=== PATIENT | female | born 1940 | race Caucasian/White ===

== ENCOUNTER → 2023-09-12 13:45 | Outpatient (REF) | payer MEDICARE, BC, SELFPAY | LOC: HWRAD 13:45 | PROVIDERS: ATTENDING PHYSICIAN Internal Medicine | DX: M81.0 Age-related osteoporosis without current pathological fracture (principal) | CPT/HCPCS: 77080 ==

== ENCOUNTER 2024-10-22 20:55 | Inpatient (IN) | payer MEDICARE, BC, SELFPAY ==
[2024-10-22 18:13] VITALS: BMI 20.6
[2024-10-22 18:43] LABS: % Basophils 0.4 % (0-2); % Eosinophils 2.3 % (0-6); % Immature Granulocytes 0.4 % (0-0.5); % Lymphocytes 4.4 % (20.5-51.1); % Monocytes 7.8 % (1.7-9.3); % Neutrophils 84.7 % (42.2-75.2); Absolute Eosinophils 0.2 10^3/uL (0-0.7); Absolute Lymphocytes 0.4 10^3/uL (1.2-3.4); Absolute Monocytes 0.7 10^3/uL (0.1-0.6); Absolute Neutrophils 7.1 10^3/uL (1.4-6.5); Hematocrit 37.9 % (37.0-47.0); Hemoglobin 13.1 g/dL (12.0-16.0); Mean Corp Hgb Conc. 34.6 g/dL (33.0-37.0); Mean Corpuscular Volume 86.9 fL (81.0-99.0); Mean Platelet Volume 10.6 fL (7.4-10.4); Nucleated Red Blood Cells % 0 %; Platelet Count 151 10^3/uL (130-400); Red Blood Cell Count 4.36 10^6/uL (4.20-5.40); Red Cell Dist. Width 13.7 % (11.5-14.5); White Blood Cell Count 8.4 10^3/uL (4.8-10.8)
--- NOTE | 2024-10-22 18:45 | ED.GENMED ---
History of Present Illness
General
Chief Complaint: Breathing Problem
Source: patient
Exam Limitations: none
Time Seen by Provider: 10/22/24 18:32
Nursing documentation reviewed up to this point in time: agreed with
History of Present Illness
History of Present Illness:
84-year-old female presents Emergency Department complaining of shortness of breath and fever of 103. She has a history of COPD. Her breathing has worsened recently. Her oxygen saturation was 88% on baseline, and I gradually had increased her
oxygen to 6 L upon arrival in the emergency department. She had diarrhea once this morning.
Past History
Past History
ED Past Medical History: COPD, Psychiatric (Anxiety) and Other (Kidney stones)
ED Past Surgical History: Appendectomy and Tonsilectomy
Social History
Tobacco: Former smoker
Alcohol: None
Drug: None
Personal:
Living: with family
Employment: Retired
Family History
Family History: Other
Review of Systems
Review of Systems
Allergies reviewed?: Yes
All Other Systems: Not applicable
Constitutional: Reports fever
EENT: Reports no symptoms
Respiratory: Reports cough and trouble breathing
Cardiac: Reports no symptoms
ABD/GI: Reports no symptoms
: Reports no symptoms
Musculoskeletal: Reports no symptoms
Skin: Reports no symptoms
Neurological: Reports no symptoms
Endocrine: Reports no symptoms
Hematologic/Lymphatic: Reports no symptoms
Psychiatric: Reports no symptoms
Phy Exam
Physical Exam
Physical Exam:
Physical Exam
General: no apparent distress, not acutely ill
Neck: supple. no meningeal signs. normal posterior pharynx
Heart: s1/s2 regular rate and rhythm, no murmur. equal radial
pulses.
HEENT: Pupils equal round reactive to light, EOMI
Lungs: Moderate respiratory distress, on 6 L nasal cannula, crackles at bilateral bases
Abdomen: normal bowel sounds. not tender. no CVAT
Neuro: alert and oriented. no focal neurological deficits cranial nerves II through XII intact
Skin: no rash
Psychiatric: well kept. interactive and cooperative
Extremities: no edema. no calf tenderness. negative homans. good distal pulses
Scores
Heart Failure Risk
Heart Failure Risk Score: Not Applicable
Course
Orders/Labs/Results
Orders:
Orders
10/22/24 18:17
Electrocardiogram (*1) Urgent
Reason for Study: Other
Other Reason for Exam: Respiratory Distress
CR Chest - 2 Views Urgent
Comment:
Reason For Exam: respiratory distress
10/22/24 18:24
COVID-19 Antigen Routine
Source: Nasal Swab
Complete Blood Count/With Diff Urgent
Comprehensive Metabolic Panel Urgent
Lactate Level [Lactic Acid] Routine
NT-proBNP Urgent
Troponin I Urgent
Influenza A+B Rapid Molecular Routine
NORMAN Source: Nasal Swab
Specimen Description:
10/22/24 19:13
Dexamethasone Sod Phosphate [Decadron] 10 mg IV NOW STA
Ipratropium/Albuterol Sulfate [Duoneb] 3 ml INH R NOW STA
10/22/24 19:15
Acetaminophen [Tylenol] 650 mg PO NOW STA
10/22/24 19:43
Azithromycin 500 mg IVPB NOW Azithromycin 500 mg/250 ml [Zithromax Infusion] 500 mg in 250 ml IV NOW
CefTRIAXone [Rocephin] 2,000 mg IV NOW STA
Abnormal Lab Results
10/22/24
18:24
MPV 10.6 H fL
(7.4-10.4)
Absolute Neuts (auto) 7.1 H 10^3/uL
(1.4-6.5)
Absolute Lymphs (auto) 0.4 L 10^3/uL
(1.2-3.4)
Absolute Monos (auto) 0.7 H 10^3/uL
(0.1-0.6)
Neutrophils % 84.7 H %
(42.2-75.2)
Lymphocytes % 4.4 L %
(20.5-51.1)
Sodium 132 L mmol/L
(135-145)
Creatinine 0.5 L mg/dL
(0.6-1.0)
Glucose 145 H mg/dl
(70-99)
Alkaline Phosphatase 168 H U/L
(38-126)
10/22/24 18:24
10/22/24 18:24
Vital Signs
Initial and Last Documented VS:
Initial Vital Signs
Temp
100.6 F H
10/22/24 18:18
Last Documented Vital Signs
Temp Pulse Resp Pulse Ox
100.6 F H 81 16 97
10/22/24 18:18 10/22/24 18:26 10/22/24 18:26 10/22/24 18:29
MDM/Problems Addressed
Differential Diagnosis Includes:
Pneumonia, COPD
MDM/Problems Addressed:
84-year-old female with pneumonia, right basilar, COPD exacerbation. Hypoxia. Admit to hospitalist. Treat with Rocephin and Zithromax.
Chronic conditions affecting care: COPD
Acute Exacerbation and/or Progression of Chronic Illness: COPD
*Radiology
Radiology exam reviewed: radiology read reviewed (Chest x-ray right basilar pneumonia)
*Pulse Oximetry
Patient hypoxic: yes
*EKG
Interpreted by ED Provider?: Yes
EKG Intrepretation Date: 10/22/24
EKG Intrepretation Time: 18:22
Interpretation: normal
Comparison EKG: no changes
Heart Rate: 84
Rate: normal
Rhythm: sinus
[place]: normal axis
Interval: normal interval
QRS Pattern: normal QRS
Ischemia: no ischemia
*Collections Representative Interpretation
Rate: normal
Interpretation: normal
Heart Rate: 84
Rhythm: sinus
*Critical Care Note
Total Time (30-74mins, 75-104mins- exclusive of procedures): Not Applicable
Patient Management
Social determinants of health affecting care: Living situation and Strong social support
Discussion with other providers: Hospitalist
Escalation/DeEscalation of care consider admission/obs:
Admit indicated
ED Attending Note
-
Portions of this chart may have been created with voice recognition software.� Occasional wrong word or��sound alike� substitutions may have occurred due to the inherent limitations of voice recognition software.
Discharge Plan
Departure
Patient Disposition: Admit
Date of Disposition: 10/22/24
Time of Disposition: 19:16
Admit to: Telemetry
Presentation/result/management discussed w/ accepting MD/DO: Hospitalist
Patient with high blood pressure during this ER visit?: No
Condition: Fair
Covid-19: Negative COVID-19
Discharge Problem:
Acute exacerbation of chronic obstructive pulmonary disease, Pneumonia involving right lung
Prescriptions:
No Action
lorazepam 0.5 MG tablet
0.5 mg PO 1400
lorazepam 1 MG tablet
1 mg PO DAILY
cholecalciferol (vitamin D3) 2,000 UNITS tablet
2,000 units PO DAILY
vitamin E (dl, acetate) 400 UNITS capsule
400 units PO DAILY
cod liver oil 1 CAP capsule
1 cap PO DAILY
ascorbic acid (vitamin C) [Vitamin C] 500 MG tablet
1,000 mg PO BID
cyanocobalamin (vitamin B-12) 1,000 MCG/ML solution
500 mcg SC WEEKLY
oxycodone-acetaminophen [Percocet] 1 EACH tablet
2 tablets PO Q6HPRN PRN (Reason: severe pain) Qty: 12 0RF
tramadol [Ultram] 50 MG tablet
50 mg PO Q6HPRN PRN (Reason: moderate pain) Qty: 12 0RF
lisinopril 5 mg tablet
5 mg PO DAILY Qty: 10 0RF
Interventions
Interventions:
*Risk Screen - Suicide Last Done: 10/22/24 18:20
*General Assessment Last Done: 10/22/24 18:20
*Neglect/Abuse Screening Last Done: 10/22/24 18:20
*ED- Fall Risk Assessment Last Done: 10/22/24 18:20
*ED COVID-19 Vaccine History Last Done: 10/22/24 18:20
ED- Cardiac Assessment Last Done: 10/22/24 18:29
ED- Pulmonary Assessment Last Done: 10/22/24 18:29
Discharge Date and Time
Print Language: EQUATORIAL GUINEAN
[2024-10-22 18:52] LABS: Lactic Acid 1.1 mmol/L (0.7-2.0)
[2024-10-22 18:55] LABS: ALT (SGPT) 30 U/L (0-35); AST (SGOT) 36 U/L (14-36); Albumin 3.9 g/dl (3.5-5.0); Alkaline Phosphatase 168 U/L (38-126); Blood Urea Nitrogen 17 mg/dl (7-17); Calcium 9.7 mg/dl (8.4-10.2); Carbon Dioxide 26 mmol/L (22-30); Chloride 98 mmol/L (98-107); Estimated Creatinine Clearance 57 ml/min; Glucose 145 mg/dl (70-99); Potassium 3.9 mmol/L (3.5-5.1); Sodium 132 mmol/L (135-145); Total Bilirubin 0.8 mg/dl (0.2-1.3); Total Protein 6.7 g/dl (6.3-8.2); eGFR > 60.00
[2024-10-22 18:58] LABS: COVID-19 Antigen Negative (Negative)
[2024-10-22 19:04] LABS: NT-proBNP 1180 pg/ml; Troponin I < 0.012 ng/ml
[2024-10-22 19:46] VITALS: BP 106/92
--- NOTE | 2024-10-22 19:54 | HPS.HSE ---
Addendum entered and electronically signed by Felix Harris DO 10/22/24 21:31:
Patient seen and examined independently. Agree with findings and plan as set forth by VIRGINIA Alaniz.
Patient is an 84y F with PMH significant for COPD, hypertension and chronic pain who presents to ED complaining of increased SOB. Patient states that she woke this AM feeling SOB. She has had chronic issues with L V1 zoster infection over the
past 6 months. Patient admits that the incessant itching causes her to become anxious and SOB at times. She noted a fever at home today to 103 degrees and presented to the ED for further evaluation. Patient denies any cough, chest pain, N/V/D or
urinary complaints.
Ass:
RLL Pneumonia
Acute on Chronic Hypoxemic Respiratory Failure
COPD (1 lpm O2 at baseline)
Chronic Hyponatremia
Benign Hypertension
Anxiety / Depression
V1 Zoster with Chronic Pruritis
Osteoporosis
Plan:
Admit for further evaluation and treatment.
Continue abx for CAP.
Not wheezing at present so will hold on systemic steroids.
Nebs ATC and PRN.
Continue O2 support.
Continue usual home medications.
Follow for clinical improvement.
Original Note:
Family Physician
-
Family Physician: Tiffany Hutchinson
Chief Complaint
-
sob
fever
History of Present Illness
84-year-old female with past medical history for COPD, chronic pain, hypertension, hyperlipidemia presents Emergency Department complaining of shortness of breath and fever of 103. Patient uses 1 L at baseline. Today she she woke up with short of
breath, which is worse with exertion. Later she was noted to have a fever of 103. Patient denied any cough, chest pain. Patient denied any headache, dizziness or syncope. Patient denied any abdominal pain, nausea, vomiting. She had an episode
of diarrhea this morning. Patient denied any urinary frequency, urgency, burning or hematuria.
zithro, ceftriaxone, Decadron, nebx, Tylenol in Er. admitting for further management.
Chest x-ray with pneumonia
Medical History
Past Medical History
Past Medical History: Reports Other
Additional Past Medical History:
COPD
anxiety
kidney stones
Hypertension
Hyperlipidemia
Past Surgical History: Reports Other
Additional Past Surgical History:
appendectomy
tonsillectomy
Social History
Tobacco: Former Smoker
Alcohol: None
Drug: None
Personal:
Living: With Family
Family History
Family History: Not pertinent
Allergies / Home Medications
Allergies reflects when Allergies were last updated in [facility].
Home Medications with original date entered in [facility]
Allergy/Medication List:
Allergies
Allergy/AdvReac Type Severity Reaction Status Date / Time
No Known Allergies Allergy Verified 01/29/22 08:40
Home Medications
lorazepam 0.5 mg tablet 0.5 mg PO BID 05/06/21
abaloparatide (Tymlos) 80 mcg SC NOON 10/22/24
formoterol fumarate 20 mcg/2 mL solution for nebulization 2 ml inhalation R BID 10/22/24
mirtazapine 15 mg tablet 15 mg PO HS 10/22/24
pregabalin 50 mg capsule 50 mg PO BID 10/22/24
propranolol 80 mg capsule,extended release 24 hr 80 mg PO DAILY 10/22/24
revefenacin 175 mcg/3 mL solution for nebulization (Yupelri) 175 mcg inhalation R DAILY 10/22/24
rosuvastatin 5 mg tablet 5 mg PO DAILY 10/22/24
Review of Systems
-
Constitutional: Reports No Symptoms, Fever and Fatigue
EENT: Reports No Symptoms
Respiratory: Reports Trouble Breathing
Cardiac: Reports No Symptoms
Abdomen/GI: Reports No Symptoms
: Reports No Symptoms
Musculoskeletal: Reports No Symptoms
Skin: Reports No Symptoms
Neurological: Reports No Symptoms
Endocrine: Reports No Symptoms
Hematologic/Lymphatic: Reports No Symptoms
Psych: Reports No Symptoms
Physical Exam
Vital Signs
Vital Signs
Temp Pulse Resp BP Pulse Ox
99.4 F 72 16 106/92 98
10/22/24 19:46 10/22/24 19:46 10/22/24 18:26 10/22/24 19:46 10/22/24 19:46
Physical Exam
General: Well Developed, Well Nourished and No Apparent Distress
HEENT: NormoCephalic, Moist mucous membranes and Atraumatic
Respiratory: Decreased Breath Sounds
Cardiac: S1/S2 and Regular Rhythm; No Murmur or Rub
GI: Soft, Non Tender, Non Distended and Normal Bowel Sounds; No Organomegaly
Rectal: Deferred by Provider
Musculoskeletal: No Clubbing, No Cyanosis and No Edema
Skin: No Rash
Neuro: AO x 3 and Nonfocal/grossly intact
Psych: Calm
Laboratory Results
-
10/22/24 18:24
10/22/24 18:24
Laboratory Results
Lactic Acid 1.1 mmol/L (0.7-2.0) 10/22/24 18:24
Total Bilirubin 0.8 mg/dl (0.2-1.3) 10/22/24 18:24
AST 36 U/L (14-36) 10/22/24 18:24
ALT 30 U/L (0-35) 10/22/24 18:24
Alkaline Phosphatase 168 U/L (38-126) H 10/22/24 18:24
Troponin I < 0.012 ng/ml 10/22/24 18:24
Data Reviewed
-
Diagnostic Radiology: Report Reviewed by me
Lab Data: Labs Reviewed by me
Impression/Plan
-
#acute on chronic hypoxic respiratory failure
#right basilar pneumonia
#hxt of COPD
-Patient uses baseline 1 L of oxygen
-covid/flu negative
-chest x ray with mild right basilar probable atelectasis. pneumonia remains in the differential diagnosis.
- Patient received IV ceftriaxone azithromycin in ER
- Continue supplemental oxygen to keep cycle 92
- Wean as tolerated
- IV ceftriaxone and zithro continued
- Tylenol as needed for fever or pain
- Decadron in ER
- Formoterol continued
#chronic hyponatremia
-na 132
-Continue to monitor
# Osteoporosis
-Abaloparatide continued
# Anxiety
- Lorazepam continued
- Mirtazapine for sleep
- Pregabalin continue
# Hypertension
- Propranolol continude
# Hyperlipidemia
- Statin continued
#DVT prophylaxis
- Lovenox subcu
# CODE STATUS
- Full code
[2024-10-22 20:00] VITALS: BP 109/69
[2024-10-22] MEDS: DECADRON 10 MG IV (20:00)
[2024-10-22] MEDS: DUONEB 3 ML INH (20:04)
[2024-10-22] MEDS: ROCEPHIN 2000 MG IV (20:08)
[2024-10-22] MEDS: ZITHROMAX INFUSION 250 IV (20:16)
--- NOTE | 2024-10-22 20:27 | EDRN ---
Pt complains of few days of worsening sob. Pt uses 1 lpm O2 at bedtime. Pt says her made her come to the ED today. notes pt gets sob when she talks a lot. Pt initially on 5 lpm O2 98%, decreased O2 to 2 lpm. Pt denies sob
currently and says the breathing treatment did not make her feel any different. Pt with temp 103 at home. Pt says tylenol does not work for her so she declined to take ordered tylenol because her temp was 99.6 and she has no pain. No cp, abd
pain, n/v, chills, urinary symptoms, dizziness.
--- NOTE | 2024-10-22 20:35 | EDRN ---
Pt complains of increased sob while eating - oxygen increased to 4 lpm
[2024-10-22 22:00] VITALS: BP 101/58
[2024-10-22 23:00] VITALS: BP 107/62
--- NOTE | 2024-10-23 03:10 | PTCARENOTE ---
Pt received as ED hold in bed. AAOx3, drowsy. at beside assisted w/admission questions and plan of care discussed. Full physical assessment completed (refer to worklist). Coarse crackles 1/2 up. Pt denies respiratory complaints at
present. 96% on 4L O2 via NC. Refused HS hygiene. is staying in room. Call gonzalez w/in reach. Safe environment maintained.
[2024-10-23] MEDS: VENTOLIN NEBULES 2.5 MG INH ×4 (08:28→19:23)
[2024-10-23] MEDS: ATIVAN 0.5 MG PO ×2 (08:28→20:26)
[2024-10-23] MEDS: CRESTOR 5 MG PO (09:15)
[2024-10-23] MEDS: LYRICA 50 MG PO ×2 (09:15→20:26)
--- NOTE | 2024-10-23 09:19 | W.PN.HOSP.TC ---
Today's Communication/Plan
-
Continue current treatments
Wean oxygen as able
Assessment / Plan
Assessment / Plan
#acute on chronic hypoxic respiratory failure-patient uses 1 L of oxygen at bedtime and 1 L of oxygen on and off during the day at home normally. Currently requiring 4 L of oxygen. No acute respiratory distress and not actively bronchospastic.
Wean oxygen as able.
# Possible right basilar pneumonia-patient presents with fever and increasing shortness of breath. She has no leukocytosis but has a left shift. She is a focal crackles in the right lung. Clinical concern is for pneumonia. Treated
community-acquired pneumonia. Follow progress. COVID-19/flu negative. Urinary Legionella and Streptococcus pneumonia antigen negative. Afebrile today.
#hxt of COPD-no evidence of flareup. Continue with nebulizers. Hold on steroids.
#chronic hyponatremia
-na 132
-Continue to monitor
# Osteoporosis
-Abaloparatide continued
# Anxiety
- Lorazepam continued
- Mirtazapine for sleep
- Pregabalin continue
# Hypertension
- Propranolol continude
# Hyperlipidemia
- Statin continued
#DVT prophylaxis
- Lovenox subcu
# CODE STATUS
- Full code
Anticipated Discharge: 24 - 48 hours
Subjective/Interval History
-
Date of Service: October 23, 2024
Patient feels bit better. Not short of breath at rest. Cough without much phlegm. No chest pain. No sore throat.
No nausea vomiting.
Objective Data
-
Vital Signs:
Vital Signs
Temp Pulse Resp BP Pulse Ox
97.7 F 67 16 107/62 98
10/23/24 04:41 10/23/24 08:34 10/23/24 08:34 10/22/24 23:00 10/23/24 08:34
Physical Exam
-
General: Comfortable
Respiratory: Crackles (Right base) and Non Labored Respirations; Negative Wheezes or Accessory Resp Muscle Use
Cardiac: Regular Rhythm and S1/S2; Negative Tachycardic
Musculoskeletal: No Edema
Neuro: AO x 3
Data Reviewed
-
Labs: Labs Reviewed by me
[2024-10-23] MEDS: INDERAL LA 80 MG PO (09:26)
--- NOTE | 2024-10-23 10:54 | PTCARENOTE ---
inpt room assigned. No delay report sent to 3W. Pt transporting in bed. Pt and family notified.
[2024-10-23 11:30] VITALS: BP 130/68
[2024-10-23] MEDS: ZENPEP DELAYED RELEASE CAPSULE 3 CAPSULE PO (13:32)
[2024-10-23 16:00] VITALS: BP 153/84
[2024-10-23] MEDS: ZENPEP DELAYED RELEASE CAPSULE PO (18:23)
[2024-10-23] MEDS: ZITHROMAX 500 MG PO (20:26)
[2024-10-23] MEDS: ROCEPHIN 1000 MG IV (20:30)
[2024-10-23] MEDS: STERILE WATER FOR INJECTION 10 ML IV (20:30)
[2024-10-23] MEDS: REMERON 15 MG PO ×2 (20:30)
[2024-10-23 23:44] VITALS: BP 131/67
[2024-10-24 00:43] VITALS: BP 131/67
[2024-10-24 06:35] LABS: Blood Urea Nitrogen 16 mg/dl (7-17); Calcium 9.4 mg/dl (8.4-10.2); Carbon Dioxide 30 mmol/L (22-30); Chloride 103 mmol/L (98-107); Estimated Creatinine Clearance 57 ml/min; Glucose 92 mg/dl (70-99); Sodium 140 mmol/L (135-145); eGFR > 60.00
[2024-10-24 07:00] VITALS: BP 157/83
[2024-10-24] MEDS: VENTOLIN NEBULES 2.5 MG INH ×2 (07:38→11:13)
[2024-10-24] MEDS: CRESTOR 5 MG PO (08:32)
[2024-10-24] MEDS: ZENPEP DELAYED RELEASE CAPSULE 3 CAPSULE PO ×2 (08:32→12:28)
[2024-10-24] MEDS: INDERAL LA 80 MG PO (08:32)
[2024-10-24] MEDS: LYRICA 50 MG PO (08:37)
[2024-10-24] MEDS: ATIVAN 0.5 MG PO (08:43)
--- NOTE | 2024-10-24 10:18 | W.PN.HOSP.TC ---
Today's Communication/Plan
-
DC
Assessment / Plan
Assessment / Plan
#acute on chronic hypoxic respiratory failure-patient uses 1 L of oxygen at bedtime and 1 L of oxygen on and off during the day at home normally. Was requiring 4 L of oxygen on admission - today down to 1l O2. No acute respiratory distress and not
actively bronchospastic.
Check ambulatory pulse ox. Aim to keep >88.
# Possible right basilar pneumonia-patient presents with fever and increasing shortness of breath. She has no leukocytosis but has a left shift. She is a focal crackles in the right lung. Clinical concern is for pneumonia. Treated
community-acquired pneumonia. COVID-19/flu negative. Urinary Legionella and Streptococcus pneumonia antigen negative.
Clinically feels improved. Improving oxygenation. Hemodynamically stable. Afebrile. No GI symptoms. Reached clinical stability from pneumonia standpoint. Will transition to oral cefdinir and zithromax to complete 7-day course. Patient was
advised to get a repeat chest x-ray in 4 weeks to follow on the right basal pneumonia.
#hxt of COPD-no evidence of flareup. Continue with nebulizers. Hold on steroids.
#chronic hyponatremia
-na 140 today
# Osteoporosis
-Abaloparatide continued
# Anxiety
- Lorazepam continued
- Mirtazapine for sleep
- Pregabalin continue
# Hypertension
- Propranolol continude
# Hyperlipidemia
- Statin continued
#DVT prophylaxis
- Lovenox subcu
# CODE STATUS
- Full code
Medically stable for DC today
More than 30 minutes spent in discharge including
Final examination of the patient
Summarizing hospital stay
Instructions for continuing care to all relevant caregivers
Preparation of discharge records, prescriptions, and referral forms
Total time spent (in minutes):
Anticipated Discharge: Today
Subjective/Interval History
-
Date of Service: October 24, 2024
Patient is feeling improved.
Denies shortness of breath. Feels generally well.
No fever or chills.
Not much of cough. Denies chest pain.
Denies nausea vomiting or diarrhea.
Keen to go home.
Patient normally uses 1 L of oxygen at bedtime and also during the day times intermittently.
Objective Data
-
Labs:
Laboratory Results
10/24/24
05:37
Sodium 140 D
Potassium 4.0
Chloride 103
Carbon Dioxide 30
BUN 16
Creatinine 0.5 L
Glucose 92
Calcium 9.4
Vital Signs:
Vital Signs
Temp Pulse Resp BP Pulse Ox
98.1 F 61 16 157/83 95
10/24/24 07:00 10/24/24 07:44 10/24/24 07:44 10/24/24 07:00 10/24/24 07:44
I&O
10/23/24 10/24/24 10/25/24
06:59 06:59 06:59
Intake Total 1200 / 1200
Balance 1200 / 1200
Review of Systems
-
EENT: Denies Sore Throat
Cardiac: Denies Chest Pain
Abdomen/GI: Denies Abdominal Pain
Neuro: Denies Dizzy
Physical Exam
-
General: Comfortable
HEENT: Moist Mucous Membranes
Respiratory: Crackles (few in rt base) and Non Labored Respirations; Negative Wheezes or Accessory Resp Muscle Use
Cardiac: Regular Rhythm and S1/S2; Negative Tachycardic
Musculoskeletal: Negative No Edema
Psych: Calm; Negative Confused
Data Reviewed
-
Labs: Labs Reviewed by me
--- NOTE | 2024-10-24 10:34 | W.DCSUMMARY ---
Discharge Summary
Discharge Data
Date of Admission: 10/22/24
Date of Discharge: 10/24/24
-
Pending Results: No
Hospital Course
Primary diagnosis:
Community-acquired pneumonia with right lower lobe infiltrate
Acute on chronic hypoxic respiratory failure
Secondary diagnosis:
Chronic obstructive pulmonary disease
Chronic hypoxic respiratory insufficiency
Chronic hyponatremia
Benign hypertension
Anxiety/depression
History of V1 zoster infection with chronic pleuritis
Osteoporosis
Hospital course:
Patient with history of COPD on chronic O2 use especially at night and at times during the day presented with increasing shortness of breath. She was febrile at home. She denied much of cough or chest pain. She had normal white count but left
shift was noted. She had crackles in the right base. Chest x-ray raised concern about lower lobe infiltrate. Clinical concern was of community-acquired pneumonia. COVID and flu was negative. Urinary antigen for Legionella and Streptococcus
pneumo are negative. She was treated with empirical ceftriaxone and Zithromax with clinical improvement. Her oxygenation improved to her baseline of 1 L. She was discharged home and to complete 7-day course of cephalosporin and 5 days of
Zithromax. Advised to get a repeat chest x-ray in 4 weeks time.
With regards to COPD there was no evidence of flare. She remained on her home medication.
Discharge Plan
-
Patient Disposition: Home (Routine Discharge)
Discharge Diagnosis/Procedures: Community-acquired pneumonia; hx of COPD
Diet: Regular
Activity: As tolerated
Driving Restrictions: As prior to admission
Bathing Restrictions: None
Others Tests: Chest Xray 2 view in 4 weeks to follow on pneumonia -obtain through your PCP
Referrals:
Tiffany Hutchinson MD [Family Provider] - in less than 1 week
Prescriptions:
New
cefdinir 300 mg capsule
300 mg PO BID Qty: 10 0RF
azithromycin 250 mg Tablet
500 mg PO Q24H Qty: 3 0RF
Zenpep 10,000-32,000 -42,000 unit Capsule,Delayed Release(Dr/Ec)
3 cap PO MEALS Qty: 1 0RF
Rx Instructions:
This is not a new medication . It is Creon which you use at home .
Continued
lorazepam 0.5 MG tablet
0.5 mg PO Q8H PRN (Reason: anxiety)
mirtazapine 15 mg Tablet
15 mg PO HS
propranolol 80 mg Capsule,Extended Release 24hr
80 mg PO DAILY
rosuvastatin 5 mg Tablet
5 mg PO DAILY
pregabalin 50 mg Capsule
50 mg PO BID
formoterol fumarate 20 mcg/2 mL Solution For Nebulization
2 ml INHALATION R BID
Tymlos 80 mcg (3,120 mcg/1.56 mL) Pen Injector
80 mcg SC NOON
Yupelri 175 mcg/3 mL Solution For Nebulization
175 mcg INHALATION R DAILY
Discharge Orders:
Discharge Patient (As Directed); Ordered 10/24/24
Ordered By: Harris Brown
Discharge Date and Time
Print Language: SWEDISH
--- NOTE | 2024-10-24 11:13 | CM ---
CM following re: d/c planning.
CM met with pt and spouse at bedside.
Potential d/c later today.
Pt and spouse reside at [facility] (independent living).
Pt reports she is independent with mobility and ADLs.
She has a scooter for long distances.
Spouse drives.
PCP is Dr. Hutchinson and pharmacy is [facility] in [place].
Pt does not anticipate any d/c needs at this time.
Spouse will provide transport home.
[2024-10-24 12:50] VITALS: BP 175/79
== END 2024-10-24 12:44 | disposition home or self-care (01) | DRG 193 ==
LOC: 3 WEST ACU 20:55
PROVIDERS: ADMITTING PHYSICIAN Hospitalist; ATTENDING PHYSICIAN Internal Medicine; EMERGENCY PHYSICIAN Emergency Medicine; FAMILY PHYSICIAN Internal Medicine
DX: J18.9 Pneumonia, unspecified organism (principal); J96.21 Acute and chronic respiratory failure with hypoxia; J44.0 Chronic obstructive pulmonary disease with (acute) lower respiratory infection; E87.1 Hypo-osmolality and hyponatremia; E78.5 Hyperlipidemia, unspecified; F32.A Depression, unspecified; F41.9 Anxiety disorder, unspecified; I10 Essential (primary) hypertension; M81.0 Age-related osteoporosis without current pathological fracture; Z87.891 Personal history of nicotine dependence; Z99.81 Dependence on supplemental oxygen; Z11.52 Encounter for screening for COVID-19; Z79.899 Other long term (current) drug therapy
CPT/HCPCS: 71046; 80048; 80053; 83605; 83880; 84484; 85025; 87449; 87502; 87811; 87899; 93005; 94640; 96365; 96366; 96375; 99285

== ENCOUNTER 2024-10-25 22:41 | Inpatient (IN) | payer MEDICARE, BC, SELFPAY ==
[2024-10-25] VITALS (53 sets, daily range): BP systolic 65–220; BP diastolic 32–146; PULSE 2–112
[2024-10-25 18:33] LABS: % Basophils 0.2 % (0-2); % Immature Granulocytes 0.4 % (0-0.5); % Lymphocytes 7.7 % (20.5-51.1); % Monocytes 5.1 % (1.7-9.3); % Neutrophils 83.6 % (42.2-75.2); Absolute Eosinophils 0.3 10^3/uL (0-0.7); Absolute Lymphocytes 0.7 10^3/uL (1.2-3.4); Absolute Monocytes 0.5 10^3/uL (0.1-0.6); Absolute Neutrophils 7.9 10^3/uL (1.4-6.5); Hematocrit 41.7 % (37.0-47.0); Hemoglobin 14.2 g/dL (12.0-16.0); Mean Corp Hgb Conc. 34.1 g/dL (33.0-37.0); Mean Corpuscular Hgb 30.3 pg (27.0-31.0); Mean Corpuscular Volume 89.1 fL (81.0-99.0); Mean Platelet Volume 11.2 fL (7.4-10.4); Nucleated Red Blood Cells % 0 %; Platelet Count 232 10^3/uL (130-400); Red Blood Cell Count 4.68 10^6/uL (4.20-5.40); Red Cell Dist. Width 13.8 % (11.5-14.5); White Blood Cell Count 9.5 10^3/uL (4.8-10.8)
[2024-10-25] MEDS: DUONEB 3 ML INH (18:37)
--- NOTE | 2024-10-25 18:42 | ED.GENMED ---
History of Present Illness
<Robert Augustine PA-C - Last Filed: 10/25/24 20:33>
General
Chief Complaint: Breathing Problem
Source: patient
Exam Limitations: none
Time Seen by Provider: 10/25/24 18:16
History of Present Illness
History of Present Illness:
84-year-old female presents for increased work of breathing and elevated blood pressure readings. She was here yesterday and discharged for pneumonia. Currently taking Zithromax and cephalosporin. She has a history of COPD and uses 1 L of oxygen
when she needs it at home. Today she was having increased work of breathing. EMS was called and she was 84% on their arrival on 1 L of oxygen. Patient denies chest pain. She denies any leg swelling or calf pain. No fevers currently.
Past History
<Robert Augustine PA-C - Last Filed: 10/25/24 20:33>
Past History
ED Past Medical History: COPD, Psychiatric (Anxiety) and Other (Kidney stones)
ED Past Surgical History: Appendectomy and Tonsilectomy
Social History
Tobacco: Former smoker
Alcohol: None
Drug: None
Personal:
Living: with family
Employment: Retired
Family History
Family History: Other
Phy Exam
<ANDRAE Khoury Last Filed: 10/25/24 20:33>
Physical Exam
Physical Exam:
General: Well-developed female with increased work of breathing
HEENT normocephalic mucosa dry
Heart: Tachycardic but regular
Lungs: Diminished breath sounds bilaterally
Abdomen is soft nontender
Extremities: No cyanosis
skin: warm, no rash.
Scores
<ANDRAE Khoury Last Filed: 10/25/24 20:33>
Heart Failure Risk
Heart Failure Risk Score: Not Applicable
Course
<Robert Augustine PA-C - Last Filed: 10/25/24 20:33>
Orders/Labs/Results
Orders:
Orders
10/25/24 18:17
Electrocardiogram (*1) Urgent
Reason for Study: Shortness of Breath
10/25/24 18:18
EKG- Treatment ONCE
10/25/24 18:19
CMP [Comprehensive Metabolic Panel] Urgent
Complete Blood Count/With Diff Urgent
10/25/24 18:25
Ipratropium/Albuterol Sulfate [Duoneb] 3 ml INH R NOW STA
10/25/24 18:27
Electrocardiogram (*1) Urgent
Reason for Study: Shortness of Breath
EKG- Treatment ONCE
10/25/24 18:34
NT-proBNP Urgent
Troponin I Urgent
10/25/24 18:41
CR Chest Portable - 1 View Urgent
Comment:
Reason For Exam: sob
Reason Study Needs to be Portable: Patient Unstable
10/25/24 18:48
Nitroglycerin Sublingual [Nitrostat (Sublingual)] 0.4 mg .ROUTE .STK-MED ONE
10/25/24 18:51
Nitroglycerin Sublingual [Nitrostat (Sublingual)] 0.4 mg SL NOW STA
10/25/24 18:53
Venous Blood Gas Urgent
%Oxygen/Room Air: 6l
10/25/24 18:57
Nitroglycerin Sublingual [Nitrostat (Sublingual)] 0.4 mg SL NOW STA
10/25/24 18:58
Nitroglycerin Sublingual [Nitrostat (Sublingual)] 0.4 mg SL NOW STA
10/25/24 19:00
Nitroglycerin 100 mg/250 ml [Nitroglycerin Premix] 100 mg in 250 ml IV PER PROTOCOL
Initial dose in mcg/min, then titrate:: 200
Titrate to keep:: SBP < 160 mmHg
Titrate by mcg/min:: 5 mcg/min, may increase by 10 mcg/min if dose > 20 mcg/min
Frequency of titrations (minutes):: every 3-5 minutes
Maximum dose in mcg/min:: 200
Begin to taper infusion when:: Remained at goal for 2hrs
Taper by mcg/min:: 5 mcg/min
Frequency of taper (minutes) if patient maintains goal:: 30
Taper to off?: Yes
If infusion off & no longer maintaining goal:: Contact Provider
10/25/24 19:03
Bipap [RESP] Urgent
Patient to use own unit?: No
Inspiratory Pressure (cm H2O): 12
Expiratory Pressure (cm H2O): 6
10/25/24 19:26
Morphine Sulfate 2 mg .ROUTE .STK-MED ONE
10/25/24 19:33
Furosemide [Lasix] 100 mg .ROUTE .STK-MED ONE
10/25/24 19:47
Furosemide [Lasix] 60 mg IV NOW STA
10/25/24 19:48
Morphine Sulfate 2 mg IV NOW STA
Abnormal Lab Results
10/25/24 10/25/24
18:19 18:53
MPV 11.2 H fL
(7.4-10.4)
Absolute Neuts (auto) 7.9 H 10^3/uL
(1.4-6.5)
Absolute Lymphs (auto) 0.7 L 10^3/uL
(1.2-3.4)
Neutrophils % 83.6 H %
(42.2-75.2)
Lymphocytes % 7.7 L %
(20.5-51.1)
VBG pH 7.27 L
(7.32-7.43)
VBG pCO2 65 H mmHg
(35-48)
VBG HCO3 29.8 H mmol/L
(22-27)
Creatinine 0.4 L mg/dL
(0.6-1.0)
Glucose 136 H mg/dl
(70-99)
Calcium 10.3 H mg/dl
(8.4-10.2)
Alkaline Phosphatase 142 H U/L
(38-126)
10/25/24 18:19
10/25/24 18:19
Vital Signs
Initial and Last Documented VS:
Initial Vital Signs
Pulse Ox
84
10/25/24 18:09
Last Documented Vital Signs
Temp Pulse Resp BP Pulse Ox
99.8 F 88 23 91/67 96
10/25/24 18:22 10/25/24 21:00 10/25/24 20:46 10/25/24 21:10 10/25/24 21:10
<Anshu Chavarria MD - Last Filed: 10/25/24 21:34>
Orders/Labs/Results
Orders:
Orders
10/25/24 18:17
Electrocardiogram (*1) Urgent
Reason for Study: Shortness of Breath
10/25/24 18:18
EKG- Treatment ONCE
10/25/24 18:19
CMP [Comprehensive Metabolic Panel] Urgent
Complete Blood Count/With Diff Urgent
10/25/24 18:25
Ipratropium/Albuterol Sulfate [Duoneb] 3 ml INH R NOW STA
10/25/24 18:27
Electrocardiogram (*1) Urgent
Reason for Study: Shortness of Breath
EKG- Treatment ONCE
10/25/24 18:34
NT-proBNP Urgent
Troponin I Urgent
10/25/24 18:41
CR Chest Portable - 1 View Urgent
Comment:
Reason For Exam: sob
Reason Study Needs to be Portable: Patient Unstable
10/25/24 18:48
Nitroglycerin Sublingual [Nitrostat (Sublingual)] 0.4 mg .ROUTE .STK-MED ONE
10/25/24 18:51
Nitroglycerin Sublingual [Nitrostat (Sublingual)] 0.4 mg SL NOW STA
10/25/24 18:53
Venous Blood Gas Urgent
%Oxygen/Room Air: 6l
10/25/24 18:57
Nitroglycerin Sublingual [Nitrostat (Sublingual)] 0.4 mg SL NOW STA
10/25/24 18:58
Nitroglycerin Sublingual [Nitrostat (Sublingual)] 0.4 mg SL NOW STA
10/25/24 19:00
Nitroglycerin 100 mg/250 ml [Nitroglycerin Premix] 100 mg in 250 ml IV PER PROTOCOL
Initial dose in mcg/min, then titrate:: 200
Titrate to keep:: SBP < 160 mmHg
Titrate by mcg/min:: 5 mcg/min, may increase by 10 mcg/min if dose > 20 mcg/min
Frequency of titrations (minutes):: every 3-5 minutes
Maximum dose in mcg/min:: 200
Begin to taper infusion when:: Remained at goal for 2hrs
Taper by mcg/min:: 5 mcg/min
Frequency of taper (minutes) if patient maintains goal:: 30
Taper to off?: Yes
If infusion off & no longer maintaining goal:: Contact Provider
10/25/24 19:03
Bipap [RESP] Urgent
Patient to use own unit?: No
Inspiratory Pressure (cm H2O): 12
Expiratory Pressure (cm H2O): 6
10/25/24 19:26
Morphine Sulfate 2 mg .ROUTE .STK-MED ONE
10/25/24 19:33
Furosemide [Lasix] 100 mg .ROUTE .STK-MED ONE
10/25/24 19:47
Furosemide [Lasix] 60 mg IV NOW STA
10/25/24 19:48
Morphine Sulfate 2 mg IV NOW STA
Abnormal Lab Results
10/25/24 10/25/24
18:19 18:53
MPV 11.2 H fL
(7.4-10.4)
Absolute Neuts (auto) 7.9 H 10^3/uL
(1.4-6.5)
Absolute Lymphs (auto) 0.7 L 10^3/uL
(1.2-3.4)
Neutrophils % 83.6 H %
(42.2-75.2)
Lymphocytes % 7.7 L %
(20.5-51.1)
VBG pH 7.27 L
(7.32-7.43)
VBG pCO2 65 H mmHg
(35-48)
VBG HCO3 29.8 H mmol/L
(22-27)
Creatinine 0.4 L mg/dL
(0.6-1.0)
Glucose 136 H mg/dl
(70-99)
Calcium 10.3 H mg/dl
(8.4-10.2)
Alkaline Phosphatase 142 H U/L
(38-126)
10/25/24 18:19
10/25/24 18:19
Vital Signs
Initial and Last Documented VS:
Initial Vital Signs
Pulse Ox
84
10/25/24 18:09
Last Documented Vital Signs
Temp Pulse Resp BP Pulse Ox
99.8 F 88 23 91/67 96
10/25/24 18:22 10/25/24 21:00 10/25/24 20:46 10/25/24 21:10 10/25/24 21:10
<Robert Augustine PA-C - Last Filed: 10/25/24 20:33>
MDM/Problems Addressed
Differential Diagnosis Includes:
Hypoxic with increased respiratory effort. Consider worsening pneumonia versus COPD flare. Does not appear volume overloaded. Respiratory initially put mid flow nasal cannula on which she did seem somewhat comfortable initially however she has
increased work of breathing. We contacted respiratory for consideration of BiPAP. Portable chest x-ray pending. Will try DuoNeb. Discussed with emergency room attending
<Robert Augustine PA-C - Last Filed: 10/25/24 20:33>
*Critical Care Note
Total Time (30-74mins, 75-104mins- exclusive of procedures): Not Applicable
<Anshu Chavarria MD - Last Filed: 10/25/24 21:34>
*Critical Care Note
Total Time (30-74mins, 75-104mins- exclusive of procedures): Not Applicable (47)
comment:
Critical care statement: A total of 47 minutes of critical care time was provided for this patient. This includes management of unstable vital signs, evaluation of the patient at bedside, reviewing the patient's pertinent medical records, ordering
and reviewing studies, arranging urgent treatment with development of a management plan, evaluating patient's response to treatment, frequent reassessment, and discussion with consultants. This time was separate from time utilized to perform the
aforementioned documented procedures.
<Robert Augustine PA-C - Last Filed: 10/25/24 20:33>
Update Note
Update Note:
Reassessed patient. In more distress on mid flow. Respiratory and initiate BiPAP. Patient was also given sublingual nitroglycerin. She appears slightly more comfortable on BiPAP. Nitro drip ordered. Portable chest x-ray reviewed no obvious
significant edema but slight congestion. Consider flash pulmonary edema from hypertensive emergency.
Reevaluated patient multiple times. Nitroglycerin drip initiated and titrated. She received multiple boluses of nitroglycerin with improvement of her respiratory effort and oxygenation while on BiPAP. Nitroglycerin being titrated and currently on
hold as last blood pressure was slightly low. Discussed with emergency room attendings. Will admit to hospital. Suspect flash pulmonary edema
ED Attending Note
<Robert Augustine PA-C - Last Filed: 10/25/24 20:33>
-
Portions of this chart may have been created with voice recognition software.� Occasional wrong word or��sound alike� substitutions may have occurred due to the inherent limitations of voice recognition software.
<Anhsu Chavarria MD - Last Filed: 10/25/24 21:34>
ED Attending Note
Patient seen and examined by attending physician: Yes
I performed the substantive portion of visit, reviewed & personally made and approve the management plan that is documented in note by myself or MALINDA.: Yes
ED Attending Note:
I have seen and evaluated the patient with a [id number] encounter. I have spoken to the [PA] and involved in the medical history, the physical exam, medical decision making.
Evaluation and management service: agree unless noted differently below.
Results interpretation: agree unless noted differently below.
Patient is a 84-year-old woman with history of COPD presenting to the emergency department respiratory distress. Per chart review patient was admitted for pneumonia and was discharged on antibiotics. Per medics patient was hypoxic and placed on
nasal cannula. She was also hypertensive and they gave her nebulizer treatment. On my evaluation patient was in severe respiratory distress, tripoding with minimal air movement worse on the right side. She was hypertensive in the 200s. I did
complete a bedside echo that shows significant pulmonary edema and lung sliding bilaterally. Stat portable chest x-ray was completed which did show pulmonary congestion as well as as possible right-sided lower lobe pneumonia per my interpretation.
Patient was placed on BiPAP and did improved. She also received sublingual nitro x 3 as well as a nitro drip. Shortly after patient became restless again and patient remained hypertensive in the 190s. Additional boluses of nitroglycerin were
given. BiPAP settings were adjusted. I did have a goals of care discussion with patient's who is power of it support consultant. He states that patient would not want a breathing tube. I did discuss the possibility of using ketamine to help with the
BiPAP however there is a chance for intubation. Patient's family member would prefer to hold off on ketamine as well. We did give morphine in addition to the nitroglycerin boluses. Shortly after patient did settle out. She does have much better
aeration bilaterally.
Nursing called as patient became hypotensive to the 100s then 90s. Nitroglycerin drip was decreased and ultimately paused. Will reassess. Will trial patient off BiPAP if she continues to become hypotensive as the positive pressure could be
affecting it.
On reevaluation patient's blood pressure in the 70s. Patient taken off BiPAP and placed on mid flow. Shortly after blood pressure did start to rise and is now in the 90s. Will continue to monitor for any additional medications or interventions
needed.
Discharge Plan
Departure
Patient Disposition: Admit
Date of Disposition: 10/25/24
Time of Disposition: 20:31
Presentation/result/management discussed w/ accepting MD/DO: Hospitalist
Discharge Problem:
Acute respiratory failure
Prescriptions:
No Action
lorazepam 0.5 MG tablet
0.5 mg PO Q8HPRN PRN (Reason: anxiety)
mirtazapine 15 mg Tablet
15 mg PO HS
propranolol 80 mg Capsule,Extended Release 24hr
80 mg PO DAILY
rosuvastatin 5 mg Tablet
5 mg PO DAILY
pregabalin 50 mg Capsule
50 mg PO BID
formoterol fumarate 20 mcg/2 mL Solution For Nebulization
2 ml INHALATION R BID
Tymlos 80 mcg (3,120 mcg/1.56 mL) Pen Injector
80 mcg SC NOON
Yupelri 175 mcg/3 mL Solution For Nebulization
175 mcg INHALATION R DAILY
cefdinir 300 mg capsule
300 mg PO BID Qty: 10 0RF
azithromycin 250 mg Tablet
500 mg PO Q24H Qty: 3 0RF
Referrals:
Tiffany Hutchinson MD [Family Provider] -
Interventions
Interventions:
*Risk Screen - Suicide Last Done: 10/25/24 18:15
*General Assessment Last Done: 10/25/24 18:15
*Neglect/Abuse Screening Last Done: 10/25/24 18:15
*ED- Fall Risk Assessment Last Done: 10/25/24 18:15
*ED COVID-19 Vaccine History Last Done: 10/25/24 18:15
ED- Cardiac Assessment Last Done: 10/25/24 18:15
ED- Pulmonary Assessment Last Done: 10/25/24 18:15
Discharge Date and Time
Print Language: WELSH
[2024-10-25 18:50] LABS: ALT (SGPT) 27 U/L (0-35); AST (SGOT) 26 U/L (14-36); Albumin 4.5 g/dl (3.5-5.0); Alkaline Phosphatase 142 U/L (38-126); Blood Urea Nitrogen 17 mg/dl (7-17); Calcium 10.3 mg/dl (8.4-10.2); Carbon Dioxide 27 mmol/L (22-30); Chloride 98 mmol/L (98-107); Glucose 136 mg/dl (70-99); Potassium 4.2 mmol/L (3.5-5.1); Sodium 135 mmol/L (135-145); Total Bilirubin 0.6 mg/dl (0.2-1.3); Total Protein 7.5 g/dl (6.3-8.2); eGFR > 60.00
[2024-10-25] MEDS: NITROSTAT (SUBLINGUAL) 0.4 MG SL ×3 (18:51→18:59)
[2024-10-25 19:08] LABS: NT-proBNP 2310 pg/ml; Troponin I 0.015 ng/ml
[2024-10-25 19:09] LABS: Venous Blood Gas B.E. 0.9 mmol/L (-4 to +4); Venous Blood Gas HCO3 29.8 mmol/L (22-27); Venous Blood Gas O2 Sat % 58.3 %; Venous Blood Gas pCO2 65 mmHg (35-48); Venous Blood Gas pH 7.27 (7.32-7.43); Venous Blood Gas pO2 43 mmHg (30-50)
[2024-10-25] MEDS: NITROGLYCERIN PREMIX 250 IV (19:12)
[2024-10-25] MEDS: MORPHINE SULFATE 2 MG IV (19:29)
[2024-10-25] MEDS: LASIX 60 MG IV (19:35)
--- NOTE | 2024-10-25 22:55 | HPS.HSE ---
Family Physician
-
Family Physician: Tiffany Hutchinson
Chief Complaint
-
SOB
History of Present Illness
Patient is an 84y F with PMH significant for COPD, HTN, anxiety and recent admission for pneumonia who presents to ED in respiratory distress. Patient was recently admitted from 10/22 - 10/24 for RLL pneumonia and treated with abx, nebs, etc.
Patient clinically improved during her stay and was discharged 10/24 on continued PO abx course. Patient states that she was feeling well at discharge - but had steadily progressive dyspnea over the past 24 hours. This evening she was in severe
respiratory distress and presented to the ED.
EMS recorded SpO2 of 84% on her usual 1 lpm of home O2.
On arrival to the ED, patient was in extremis, restless and in distress.
She was initially placed on BiPAP and treated with IV NTG and IV Lasix.
Patient has since noted significant improvement in her dyspnea.
She is currently resting comfortably and feels much improved from initial arrival.
Her BP was initially 205/133 but is now 70s systolic following NTG SL, NTG gtt, Lasix, etc.
Medical History
Past Medical History
Past Medical History: Reports Other
Additional Past Medical History:
COPD
Anxiety
Kidney stones
Hypertension
Hyperlipidemia
Past Surgical History: Reports Other
Additional Past Surgical History:
appendectomy
tonsillectomy
Social History
Tobacco: Former Smoker
Alcohol: None
Drug: None
Personal:
Living: With Family
Family History
Family History: Not pertinent
Allergies / Home Medications
Allergies reflects when Allergies were last updated in [facility].
Home Medications with original date entered in [facility]
Allergy/Medication List:
Allergies
Allergy/AdvReac Type Severity Reaction Status Date / Time
No Known Allergies Allergy Verified 01/29/22 08:40
Home Medications
lorazepam 0.5 mg tablet 0.5 mg PO Q8HPRN PRN anxiety 05/06/21
abaloparatide (Tymlos) 80 mcg SC NOON 10/22/24
formoterol fumarate 20 mcg/2 mL solution for nebulization 2 ml inhalation R BID 10/22/24
mirtazapine 15 mg tablet 15 mg PO HS 10/22/24
pregabalin 50 mg capsule 50 mg PO BID 10/22/24
propranolol 80 mg capsule,extended release 24 hr 80 mg PO DAILY 10/22/24
revefenacin 175 mcg/3 mL solution for nebulization (Yupelri) 175 mcg inhalation R DAILY 10/22/24
rosuvastatin 5 mg tablet 5 mg PO DAILY 10/22/24
azithromycin 250 mg tablet 500 mg (2 x 250 mg) PO Q24H #3 tabs 10/24/24
cefdinir 300 mg capsule 300 mg PO BID #10 caps 10/24/24
Review of Systems
-
History Source: Patient
A 12 point ROS was completed and negative except as noted: Yes
Constitutional: Reports Fatigue; Denies Fever or Chills
EENT: Denies Sore Throat
Respiratory: Reports Trouble Breathing; Denies Cough
Cardiac: Denies Chest Pain or Palpitations
Abdomen/GI: Denies Abdominal Pain, Nausea, Vomiting or Diarrhea
: Denies Dysuria, Frequency or Flank Pain
Musculoskeletal: Denies Joint Pain or Edema
Neurological: Denies Dizzy or Headache
Psych: Denies Depression or Anxiety
Physical Exam
Vital Signs
Vital Signs
Temp Pulse Resp BP Pulse Ox
99.8 F 67 20 70/49 98
10/25/24 18:22 10/25/24 22:45 10/25/24 22:45 10/25/24 22:45 10/25/24 22:45
Physical Exam
General: Other (84y F currently resting comfortably.)
HEENT: Other (Dry MM. Neck supple.)
Respiratory: Other (Bilateral rales at least 1/2 up. No wheezing / rhonchi.)
Cardiac: S1/S2 and Regular Rhythm; No Murmur
GI: Soft, Non Tender, Non Distended and Normal Bowel Sounds
Musculoskeletal: No Clubbing, No Cyanosis and No Edema
Neuro: AO x 3
Laboratory Results
-
10/25/24 18:19
10/25/24 18:19
Laboratory Results
Total Bilirubin 0.6 mg/dl (0.2-1.3) 10/25/24 18:19
AST 26 U/L (14-36) 10/25/24 18:19
ALT 27 U/L (0-35) 10/25/24 18:19
Alkaline Phosphatase 142 U/L (38-126) H 10/25/24 18:19
Troponin I 0.015 ng/ml 10/25/24 18:34
Impression/Plan
-
A/P: Patient is an 84y F with PMH significant for COPD, anxiety and recent admission for pneumonia who presents to ED in respiratory distress.
Acute Hypoxemic Respiratory Failure
Acute HF - Unknown Type
- Admit to IMU for further evaluation and treatment.
- ? pulmonary edema v interstitial pneumonitis, etc.
- Significant improvement in the ED with NTG, Lasix and O2 favors the former.
- Continue IV Lasix BID for now.
- Follow I/Os, daily weights, etc.
- Check Echo.
- Follow for continued clinical improvement.
- If symptoms recur or do not improve - consider trial of steroids for interstitial pneumonitis.
RLL Pneumonia
- Continue / complete course of cefdinir and azithromycin.
- Follow for any recurrent fever, cough or other symptoms.
Benign Hypertension
Hypotension
- Patient initially quite hypertensive - likely secondary to acute distress.
- Now hypotensive following IV NTG, Lasix, etc.
- Monitor for now for med effects to resolve.
- Midodrine PRN for low BP.
- Small fluid boluses if needed to maintain BP.
- Hold propranolol acutely.
Generalized Anxiety
- Continue current med regimen.
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
- Stable. Continue Lyrica.
DVT Prophylaxis: Subcut heparin
Code Status: DNR
[2024-10-26] VITALS (57 sets, daily range): BP systolic 78–160; BP diastolic 39–95; PULSE 69–70; O2SAT 98
[2024-10-26] MEDS: ZITHROMAX 500 MG PO ×2 (00:56→20:55)
[2024-10-26 01:29] LABS: Troponin I 0.471 ng/ml
[2024-10-26] MEDS: ProAmatine 2.5 MG PO ×4 (01:35→18:09)
--- NOTE | 2024-10-26 01:45 | PTCARENOTE ---
Received verbal report from ASHLEY Pereira. Pt aaox3 and soft spoken. Pt NSR on monitor. Pt's bp 88/46. MAP 60. PRN 2.5 mg midodrine PO ( for MAP <65) administered. 97% on 6L NC. Admission completed. Assessment and vitals as documented. Pt resting in
bed with call gonzalez in reach.
Pt's trop 0.471. MARKUS Dougherty made aware.
[2024-10-26 01:51] LABS: TSH Reflex To Free T4 0.78 uIU/ml (0.47-4.68)
[2024-10-26] MEDS: NSS 250 IV (02:28)
--- NOTE | 2024-10-26 03:59 | W.PN.UPDATE ---
Update Note
Progress Note Update
Patient is hypotensive with sbp 70s to low 80s with map 57. Midodrine, small bolus of IVF given and not effective. BP still low with map in 50s. Will start patient on Levophed to keep map >65
--- NOTE | 2024-10-26 05:53 | PTCARENOTE ---
Bp 78/45 (map 57). Notified MARKUS Dougherty and received Rx for 250 mL fluid bolus and PO midodrine (see MAR). BP now 105/64, MAP 77. NSR on monitor, hr 65.
[2024-10-26 05:54] LABS: Blood Urea Nitrogen 20 mg/dl (7-17); Calcium 8.7 mg/dl (8.4-10.2); Carbon Dioxide 31 mmol/L (22-30); Chloride 102 mmol/L (98-107); Estimated Creatinine Clearance 57 ml/min; Glucose 107 mg/dl (70-99); Potassium 4.2 mmol/L (3.5-5.1); Sodium 136 mmol/L (135-145); eGFR > 60.00
[2024-10-26 06:14] LABS: Troponin I 0.304 ng/ml
[2024-10-26 06:54] LABS: Hematocrit 32.4 % (37.0-47.0); Hemoglobin 10.9 g/dL (12.0-16.0); Mean Corp Hgb Conc. 33.6 g/dL (33.0-37.0); Mean Corpuscular Hgb 29.9 pg (27.0-31.0); Mean Platelet Volume 11.1 fL (7.4-10.4); Platelet Count 169 10^3/uL (130-400); Red Blood Cell Count 3.64 10^6/uL (4.20-5.40); Red Cell Dist. Width 13.7 % (11.5-14.5); White Blood Cell Count 9.3 10^3/uL (4.8-10.8)
--- NOTE | 2024-10-26 07:51 | W.PN.HOSP.TC ---
Today's Communication/Plan
-
see plan
Assessment / Plan
Assessment / Plan
84y F with PMH significant for COPD, anxiety and recent admission for pneumonia who presents to ED in respiratory distress.
Gen: NAD, AAOx3.
Eyes: EOMI, PERRLA, no scleral icterus.
Neck: supple.
CV: RRR, +S1/S2, no m/r/g.
Resp: Decreased breath sounds in the bases
Abd: +BS, soft, NT, ND
Skin: No rashes.
Neuro: CN 2-12 intact, non-focal.
Psych: Normal mood and affect.
CXR: Worsening pneumonitis and/or pulmonary edema. Cannot rule out component of underlying chronic interstitial lung disease.
Acute Hypoxemic Respiratory Failure due to acute CHF (Unknown Type):
-? pulmonary edema v interstitial pneumonitis, etc.
-Significant improvement in the ED with NTG, Lasix and O2 favors the former.
-was on 6L, now weaned to 2L NC O2
-cont IV Lasix
-daily wts, I/Os
-check echo
-c/s cards
-If symptoms recur or do not improve - consider trial of steroids for interstitial pneumonitis.
Essential HTN (h/o) with hypotension
-initially quite hypertensive, likely secondary to acute distress. Pt was then hypotensive following IV NTG, Lasix, etc.
-pt received Midodrine and IVF bolus, then on Levophed which has now been weaned to off
Other problems:
Recent RLL Pneumonia: cont cefdinir/azithromycin
Generalized Anxiety disorder:
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
Patient's updated at bedside
DNR/heparin
Anticipated Discharge: 24 - 48 hours
Subjective/Interval History
-
Date of Service: October 26, 2024
Shortness of breath improving.
Objective Data
-
Labs:
Laboratory Results
10/26/24
05:11
WBC 9.3
Hgb 10.9 L D
Hct 32.4 L
Plt Count 169 D
Sodium 136
Potassium 4.2
Chloride 102
Carbon Dioxide 31 H
BUN 20 H
Creatinine 0.5 L
Glucose 107 H
Calcium 8.7 D
Vital Signs:
Vital Signs
Temp Pulse Resp BP Pulse Ox
98.1 F 62 23 105/64 95
10/26/24 03:18 10/26/24 05:50 10/26/24 05:50 10/26/24 05:50 10/26/24 06:54
I&O
10/25/24 10/26/24 10/27/24
06:59 06:59 06:59
Intake Total 490 / 490
Balance 490 / 490
[2024-10-26] MEDS: OMNICEF 300 MG PO ×2 (08:51→20:54)
[2024-10-26] MEDS: LASIX 20 MG IV ×2 (08:51→16:37)
[2024-10-26] MEDS: CRESTOR 5 MG PO (08:51)
[2024-10-26] MEDS: LYRICA 50 MG PO ×2 (08:51→20:54)
[2024-10-26] MEDS: HEPARIN 5000 UNITS SC ×2 (08:52→20:55)
--- NOTE | 2024-10-26 11:45 | CON.CAR ---
Addendum entered and electronically signed by Telol Goodwin MD 10/26/24 13:45:
I saw and examined the patient.
The JUMPBASTING COLLAR BASTER or PA's note was reviewed and I agree with the note.
Comment: General: Well developed, well nourished in NAD.
Neck: Supple, no JVD, HJR, carotids +2 B/L, no bruits bilaterally.
Heart: Non displaced PMI, RRR, no murmurs, No S3, S4, no rubs.
Lungs: Scattered rhonchi
Extremities: No clubbing, cyanosis or edema bilaterally.
Neuro: Grossly nonfocal, awake, alert and oriented x3.
Abbie has a history of hypertension and herpes zoster. She is admitted with shortness of breath and acute CHF. Of note she had been admitted October 22 2024-12/2024 for pneumonia. She was discharged on October 24 and felt short of breath throughout
the day on October 25 probably return to the ER and found to be hypoxic with pulse ox of 84% and initially placed on BiPAP in the ER. She is markedly hypertensive with a blood pressure of 205/133 was started on nitroglycerin drip and given 40 mg IV
Lasix cardiology is consulted for acute CHF.
Will treat with IV Lasix. Check echocardiogram. follow trops
Original Note:
Consultation
Consultation Request
Date/Time Consultation Requested: 10/26/24 at 0810
Date/Time Consultation Performed: 10/26/24 at 1138
Requesting Provider: Dr. Roldan
Performing Provider: Dr. Goodwin
Reason for Consultation: Acute HF unknown EF
Medical History
-
History of Present Illness:
Patient came to ER last evening with increased SOB and was admitted with acute HF and cardiology is now consulted. Patient was just admitted from 10/22/2024 until 10/24/2024 with CAP and symptoms including fever and productive cough. Patient was not
given a large amount of IVF's on my review of the MAR. Patient was discharged home on cefdinir and azithromycin. Patient was also discharged home on her usual regimen of oxygen 1 L at bedtime. Patient reports feeling well when she was discharged
on 10/24/2024, but then felt progressively SOB throughout the day on 10/25/2024 prompting her return to the ER. Patient was noted to be hypoxic in the ER with an initial pulse ox of 84% with 1 L and patient was initially placed on BiPAP in the ER.
Patient also noted to be markedly HTN at 205/133 and was started on NTG gtt. patient was given Lasix 40 mg IV x 1 patient then developed increasing hypotension and briefly required Levophed starting at about 4:00 this morning. No complaints of CP.
Patient has no previous cardiac testing. Her PCP is a physician that also practices holistic medicine.
PMH:
HTN
Zoster, initial outbreak 04/2024 with ongoing rash, pain and pruritus
Past Medical History
Past Medical History: Other (in HPI)
Past Surgical History: Appendectomy and Tonsilectomy
Social History
Tobacco: Former Smoker
Alcohol: None
Drug: None
Personal:
Living: With Family (lives with in independent living at [facility])
Family History
Family History: CAD
Allergies / Home Medications
Allergy/AdvReac Type Severity Reaction Status Date / Time
No Known Allergies Allergy Verified 01/29/22 08:40
�Medication �Instructions �Recorded �Confirmed �Type
lorazepam 0.5 mg tablet 0.5 mg PO Q8HPRN PRN anxiety 05/06/21 10/25/24 History
abaloparatide (Tymlos) 80 mcg SC NOON 10/22/24 10/25/24 History
formoterol fumarate 20 mcg/2 mL 2 ml inhalation R BID 10/22/24 10/25/24 History
solution for nebulization
mirtazapine 15 mg tablet 15 mg PO HS 10/22/24 10/25/24 History
pregabalin 50 mg capsule 50 mg PO BID 10/22/24 10/25/24 History
propranolol 80 mg capsule,extended 80 mg PO DAILY 10/22/24 10/25/24 History
release 24 hr
revefenacin 175 mcg/3 mL solution 175 mcg inhalation R DAILY 10/22/24 10/25/24 History
for nebulization (Yupelri)
rosuvastatin 5 mg tablet 5 mg PO DAILY 10/22/24 10/25/24 History
azithromycin 250 mg tablet 500 mg (2 x 250 mg) PO Q24H #3 tabs 10/24/24 10/25/24 Rx
cefdinir 300 mg capsule 300 mg PO BID #10 caps 10/24/24 10/25/24 Rx
Review of Systems
-
History Source: Patient and Family ()
All other systems: Negative unless noted
Physical Exam
Vital Signs
Temp Pulse Resp BP Pulse Ox
98.2 F 66 17 105/68 99
10/26/24 08:14 10/26/24 10:00 10/26/24 10:00 10/26/24 09:00 10/26/24 10:00
GEN: NAD. AAOx3. Soft spoken
HEENT: EOMI, MMM, left eyebrow rash c/w Zoster
LUNGS: 5 L NC. B/L rales, no wheeze
CV: SR on tele. Reg, S1/S2, no murmur
ABD: soft, BS+, NT, ND
EXT: No clubbing, cyanosis, lesions or edema B/L
NEURO: Gross non-focal
SKIN: Zoster rash above left eye. Warm, dry and pink.
Lab Results
10/26/24 05:11
10/26/24 05:11
Troponin I 0.304 ng/ml H* D 10/26/24 05:11
Otz-M-Mpteldnlokw Pept 2310 pg/ml 10/25/24 18:34
Impression / Plan
-
PCP: Dr. Tiffany Hutchinson
Card: None, but asking for Dr. Hicks as an outpatient as and son follow with Dr. Hicks
Impression:
Admitted with acute hypoxic respiratory failure, SOB and CHF 10/25/24
Recent admission for PNA 10/22/24 until 10/24/24
Acute hypoxic respiratory failure
Acute HF unknown EF
HTN emergency
Hypotension
Zoster, initial outbreak 04/2024 with ongoing rash, pain and pruritus
Echo 10/26/24: Preliminary report, EF 70 to 75%, mild peak/mean 20/11 mmHg and mild aortic regurgitation, mild TR
Plan:
-Patient came to ER last evening with increased SOB and was admitted with acute HF and cardiology is now consulted. Patient was just admitted from 10/22/2024 until 10/24/2024 with CAP and symptoms including fever and productive cough. Patient was not
given a large amount of IVF's on my review of the MAR. Patient was discharged home on cefdinir and azithromycin. Patient was also discharged home on her usual regimen of oxygen 1 L at bedtime. Patient reports feeling well when she was discharged
on 10/24/2024, but then felt progressively SOB throughout the day on 10/25/2024 prompting her return to the ER. Patient was noted to be hypoxic in the ER with an initial pulse ox of 84% with 1 L and patient was initially placed on BiPAP in the ER.
Patient also noted to be markedly HTN at 205/133 and was started on NTG gtt. patient was given Lasix 40 mg IV x 1 patient then developed increasing hypotension and briefly required Levophed starting at about 4:00 this morning. No complaints of CP.
Patient has no previous cardiac testing. Her PCP is a physician that also practices holistic medicine.
-ECG reviewed by me is SR with PACs, QTc 482 ms, no acute ischemic changes. Telemetry reviewed by me is also SR
-Talked with patient and also her at the bedside. proBNP is elevated at 2310 compared to 1180 last admission which was only last week. CXR is also concerning for CHF. Patient reports some symptomatic improvement with diuresis thus far.
-Continue Lasix 20 mg IV BID. Patient was not taking diuretic prior to admission
-Preliminary echo report noted above, final report pending. EF appears to be preserved with only mild .
-I personally reviewed the MAR from her last admission and the patient was not given IVF's.
-Patient is chronically on propranolol 80 mg daily for HTN management.
-Patient was noted to be in hypertensive emergency on admission with initial BP of 205/133 and evidence of acute HF and elevated troponin.
-Nitro gtt started and patient later developed hypotension and Levophed started at 04 100 this morning, but now stopped and BP has settled out at 105/68. Patient denies VALENCIA or feeling lightheaded
-Acute HF may have been precipitated by HTN emergency.
-Will follow BPs once settled following up and down with medication changes throughout the morning.
-Initial troponin 0.015 and then peaked at 0.471 and now trending down. No CP. No ischemic changes on ECG. No WMA on echo. Will manage as a nonischemic myocardial injury troponin elevation.
-Patient's son and see Dr. Hicks and so she would like her outpatient follow up to be with Dr. Hicks.
--- NOTE | 2024-10-26 15:03 | CM ---
Patient who resides at [facility] with recent admission to for PNA now here with Dx Acute Hypoxemic Respiratory Failure due to acute CHF. O2 2L. Receiving IV Lasix, PO Abx, midodrine prn. Per nurse assessment; forgetful.
PT/OT Evals pending.
Spoke with patient's Winston;
the patient resides with her in an apartment at [facility].
She was independent for ADLs and ambulation after her discharge from on 10/24/24.
drives.
DME - home O2 1L HS - she has 3 Inogen tanks and has no home O2 concentrator, also has a scooter
No prior VN or SNF.
PCP - Tiffany Hutchinson
Pharmacy - [facility], [place]
Plan follow up after seen by PT/OT.
[2024-10-26] MEDS: ATIVAN 0.5 MG PO (16:59)
[2024-10-26] MEDS: REMERON 15 MG PO (20:55)
--- NOTE | 2024-10-26 21:53 | PTCARENOTE ---
Assumed care of pt from mireille RN. Pt aaox3, soft spoken. NSR on monitor 96% on 2L NC. Hygiene completed and CHAMP medications administered (see MAR). Pt resting in bed with at bed side and call gonzalez in reach.
[2024-10-27] VITALS (10 sets, daily range): BP systolic 98–149; BP diastolic 53–89; BMI 21.8; BMI 19.4
[2024-10-27 04:19] LABS: Hematocrit 34.7 % (37.0-47.0); Hemoglobin 11.7 g/dL (12.0-16.0); Mean Corp Hgb Conc. 33.7 g/dL (33.0-37.0); Mean Corpuscular Hgb 30.2 pg (27.0-31.0); Mean Corpuscular Volume 89.4 fL (81.0-99.0); Mean Platelet Volume 10.7 fL (7.4-10.4); Platelet Count 171 10^3/uL (130-400); Red Blood Cell Count 3.88 10^6/uL (4.20-5.40); Red Cell Dist. Width 13.8 % (11.5-14.5); White Blood Cell Count 6.7 10^3/uL (4.8-10.8)
[2024-10-27 04:51] LABS: Blood Urea Nitrogen 20 mg/dl (7-17); Calcium 9.2 mg/dl (8.4-10.2); Carbon Dioxide 30 mmol/L (22-30); Chloride 102 mmol/L (98-107); Estimated Creatinine Clearance 57 ml/min; Glucose 86 mg/dl (70-99); Magnesium 1.6 mg/dl (1.6-2.3); Potassium 3.9 mmol/L (3.5-5.1); Sodium 139 mmol/L (135-145); eGFR > 60.00
--- NOTE | 2024-10-27 08:14 | W.PN.HOSP.TC ---
Addendum entered and electronically signed by Kiel Roldan MD 10/27/24 12:01:
Drug Induced Shock
Original Note:
Today's Communication/Plan
-
see plan
Assessment / Plan
Assessment / Plan
84y F with PMH significant for COPD, anxiety and recent admission for pneumonia who presents to ED in respiratory distress.
Gen: NAD, Awake and alert
Eyes: EOMI, PERRLA, no scleral icterus.
Neck: supple.
CV: RRR, +S1/S2, no m/r/g.
Resp: mild rales in the bases
Abd: +BS, soft, NT, ND
Skin: No rashes.
Neuro: CN 2-12 intact, non-focal.
Psych: slightly anxious
CXR: Worsening pneumonitis and/or pulmonary edema. Cannot rule out component of underlying chronic interstitial lung disease.
Echo: Normal left ventricular size, wall thickness and systolic function. No regional
wall motion abnormalities are seen. LV ejection fraction is 70-75% by Jimenez's
method of discs.
Stage I diastolic dysfunction suggestive of abnormal relaxation.
Mild aortic stenosis. Peak/mean gradients across the aortic valve are 20/11
mmHg. Mild aortic regurgitation.
Mild tricuspid regurgitation.
No prior study available for comparison.
Acute Hypoxemic Respiratory Failure due to acute HFpEF:
-Pt with underlying chronic hypoxemic respiratory failure on 1L NC O2 at baseline
-Significant improvement in the ED with NTG, Lasix and O2 favors the former.
-was on 6L, now weaned to 2L NC O2
-cont IV Lasix
-daily wts, I/Os
-echo above
-cards following
Essential HTN (h/o) with hypotension:
-initially quite hypertensive, likely secondary to acute distress. Pt was then hypotensive following IV NTG, Lasix, etc.
-pt received Midodrine and IVF bolus, then on Levophed which has now been weaned to off
Other problems:
Recent RLL Pneumonia: cont cefdinir/azithromycin
Generalized Anxiety disorder: cont Remeron, Ativan PRN
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
4 family members updated at length at bedside, case discussed with cardiology.
DNR/heparin
Total time spent on today's encounter was 50 minutes which included time spent in counseling the patient/family regarding diagnosis and treatment plan as listed above, goals of care, and symptom management. Case was discussed with nursing staff,
specialists, and care coordinators/case management. All labs and imaging personally reviewed by me. Remainder the time spent in detailed review of previous records, lab data, imaging, and other medical provider documentation.
Anticipated Discharge: 24 - 48 hours
Subjective/Interval History
-
Date of Service: October 27, 2024
SOB has improved.
Objective Data
-
Labs:
Laboratory Results
10/27/24
04:05
WBC 6.7
Hgb 11.7 L
Hct 34.7 L
Plt Count 171
Sodium 139
Potassium 3.9
Chloride 102
Carbon Dioxide 30
BUN 20 H
Creatinine 0.5 L
Glucose 86
Calcium 9.2
Vital Signs:
Vital Signs
Temp Pulse Resp BP Pulse Ox
98.5 F 98 22 126/59 93
10/27/24 07:47 10/27/24 07:47 10/27/24 07:47 10/27/24 06:00 10/27/24 07:47
I&O
10/26/24 10/27/24 10/28/24
06:59 06:59 06:59
Intake Total 490 / 490
Output Total 1425 / 1425
Balance 490 / 490 -1425 / -1425
[2024-10-27] MEDS: CRESTOR 5 MG PO (08:48)
[2024-10-27] MEDS: LASIX 20 MG IV ×2 (08:48→16:14)
[2024-10-27] MEDS: OMNICEF 300 MG PO ×2 (08:48→21:28)
[2024-10-27] MEDS: LYRICA 50 MG PO ×2 (08:48→21:28)
[2024-10-27] MEDS: HEPARIN 5000 UNITS SC ×2 (08:48→21:29)
[2024-10-27] MEDS: ProAmatine 2.5 MG PO (08:51)
--- NOTE | 2024-10-27 09:01 | PTCARENOTE ---
Pt AAOx3 OOB to chair. at bedside. No CO at this time.
--- NOTE | 2024-10-27 09:20 | PN.CDI ---
CDI
- -
CDI:
Physician Documentation Request
Admit Date: 10/25/24 22:41
Dear Doctor Jamar,
Please review the following and provide your response in the progress notes.
Current documentation includes a diagnosis of hypotension.
Clinical Indicators:
Pt admitted with Acute CHF /Acute Hypoxic Respiratory Failure
Update note 10/26, ' Patient is hypotensive with sbp 70s to low 80s with map 57. Midodrine, small bolus of IVF given and not effective. BP still low with map in 50s. Will start patient on Levophed to keep map >65...'
Progress note 10/26,' Pt was then hypotensive following IV NTG, Lasix, etc.-pt received Midodrine and IVF bolus, then on Levophed which has now been weaned to off...'
Please clarify which of the following is the most likely etiology of the above symptoms and treatment rendered/IV Levophed:
Drug Induced Shock
Cardiogenic shock
Hypotension only
Other ( please specify)
Use of terms such as suspected, likely, concern for, or probable (associated with a specific diagnosis that is being evaluated, monitored, or treated as if it exists) are acceptable and can be coded in the inpatient setting, when documented at the
time of discharge.
Thank you,
Gala Tubbs RN
CDI Specialist
[facility]
Please use your independent medical judgment in providing your response.
--- NOTE | 2024-10-27 11:40 | W.PN.CARDCBS ---
Addendum entered and electronically signed by Minor Bunrham DO 10/27/24 15:58:
I saw and examined the patient.
The Expediter's note was reviewed and I agree with the note.
Comment:
Continue Lasix IV diuresis. Patient is improving symptomatically with diuresis.
EF is preserved by echo. Mild and AR reviewed.
Heart failure may have been related to her hypertensive urgency.
Blood pressure has normalized.
Discussed with at bedside.
Original Note:
Today's Communication / Plan
-
Cont Lasix 20 mg IV BID
Impression / Plan
-
PCP: Dr. Tiffany Hutchinson
Card: None, but asking for Dr. Hicks as an outpatient as and son follow with Dr. Hicks
Impression:
Admitted with acute hypoxic respiratory failure, SOB and CHF 10/25/24
Recent admission for PNA 10/22/24 until 10/24/24
Acute hypoxic respiratory failure
Acute HF unknown EF
HTN emergency
Hypotension
Zoster, initial outbreak 04/2024 with ongoing rash, pain and pruritus
Echo 10/26/24: EF 70 to 75%, stage I diastolic dysfunction, mild peak/mean 20/11 mmHg and mild aortic regurgitation, mild TR
Plan:
-Weight is up 10 lbs overnight according to recorded weight. TT to RN to please recheck weight.
-Patient is symptomatically improved with Lasix 20 mg IV BID since admission. Cre stable at 0.5. Patient was not taking diuretic prior to admission
-EF preserved by echo. is mild
-Tele reviewed and remains in SR, but HRs faster while outpatient dose of propranolol 80 mg daily is on hold.
-Patient was noted to be in hypertensive emergency on admission with initial BP of 205/133 and evidence of acute HF and elevated troponin.
-Nitro gtt started and patient later developed hypotension and briefly required Levophed which was also stopped on 10/26/24.
-Acute HF may have been precipitated by HTN emergency.
-BPs have been largely stable and acceptable in the last 24 hours without BP meds.
-Hgb 14.2 on admission, then 10.9 and now improved to 11.7 on 10/27/24
-Initial troponin 0.015 and then peaked at 0.471 and now trending down. No CP. No ischemic changes on ECG. No WMA on echo. Will manage as a nonischemic myocardial injury troponin elevation.
-Patient would like her outpatient follow up to be with Dr. Hicks.
HPI: Patient came to ER last evening with increased SOB and was admitted with acute HF and cardiology is now consulted. Patient was just admitted from 10/22/2024 until 10/24/2024 with CAP and symptoms including fever and productive cough. Patient was
not given a large amount of IVF's on my review of the MAR. Patient was discharged home on cefdinir and azithromycin. Patient was also discharged home on her usual regimen of oxygen 1 L at bedtime. Patient reports feeling well when she was
discharged on 10/24/2024, but then felt progressively SOB throughout the day on 10/25/2024 prompting her return to the ER. Patient was noted to be hypoxic in the ER with an initial pulse ox of 84% with 1 L and patient was initially placed on BiPAP in
the ER. Patient also noted to be markedly HTN at 205/133 and was started on NTG gtt. patient was given Lasix 40 mg IV x 1 patient then developed increasing hypotension and briefly required Levophed starting at about 4:00 this morning. No
complaints of CP. Patient has no previous cardiac testing. Her PCP is a physician that also practices holistic medicine.
Progress Note - Dairy Manager
Subjective
Date of Service: October 27, 2024
She feels well, still on oxygen, but breathing is better
Objective
Labs:
10/27/24 04:05
10/27/24 04:05
Labs
Hgb 11.7 g/dL (12.0-16.0) L 10/27/24 04:05
Hct 34.7 % (37.0-47.0) L 10/27/24 04:05
Plt Count 171 10^3/uL (130-400) 10/27/24 04:05
Sodium 139 mmol/L (135-145) 10/27/24 04:05
Potassium 3.9 mmol/L (3.5-5.1) 10/27/24 04:05
BUN 20 mg/dl (7-17) H 10/27/24 04:05
Creatinine 0.5 mg/dL (0.6-1.0) L 10/27/24 04:05
Glucose 86 mg/dl (70-99) 10/27/24 04:05
Troponins
10/25/24 10/26/24 10/26/24
18:34 00:33 05:11
Troponin I 0.015 0.471 H* D 0.304 H* D
Vital Signs and I&O:
Vital Signs
Temp Pulse Resp BP Pulse Ox
98.5 F 94 28 117/69 95
10/27/24 07:47 10/27/24 08:51 10/27/24 08:00 10/27/24 08:51 10/27/24 09:13
Vital Signs
Temp Pulse Resp BP Pulse Ox
98.5 F 94 28 117/69 95
10/27/24 07:47 10/27/24 08:51 10/27/24 08:00 10/27/24 08:51 10/27/24 09:13
Intake & Output
10/25/24 10/26/24 10/27/24 10/28/24
06:59 06:59 06:59 06:59
Intake Total 490 / 490
Output Total 1425 / 1425
Balance 490 / 490 -1425 / -1425
Physical Exam
Physical Exam
GEN: NAD
HEENT: MMM
LUNGS: 3 L NC.
CV: SR on tele.
--- NOTE | 2024-10-27 16:10 | CM ---
Patient who resides at [facility] with recent admission to for PNA now here with Dx Acute Hypoxemic Respiratory Failure due to acute CHF. O2 2L. Receiving IV Lasix, PO Abx. PT Eval; recommends HH. OT recommends skilled
rehab.
Met with patient and Winston; discussed patient's current functional mobility as per PT/OT. Offered VN for SN/PT/OT and thinks that would be a good idea- patient reluctantly agreed. They both chose [facility].
Spoke with [facility] (fax [phone]); referral accepted
Plan home with [facility].
[2024-10-27] MEDS: ATIVAN 0.5 MG PO (18:30)
[2024-10-27] MEDS: ZITHROMAX 500 MG PO (21:28)
[2024-10-27] MEDS: REMERON 15 MG PO (21:29)
[2024-10-28] VITALS (49 sets, daily range): BP systolic 67–132; BP diastolic 43–101; PULSE 68; O2SAT 96; BMI 19.4
--- NOTE | 2024-10-28 02:58 | PTCARENOTE ---
Pt AAOx3, drowsy. Pt states she is 'tired'. Pt is NSR on the monitor. Pt weaned to baseline 1L NC O2. SpO2 98%. Pt appears to be resting comfortably in bed. staying over and is at the bedside. Pt has call gonzalez within reach, and able to make
needs known.
--- NOTE | 2024-10-28 08:08 | W.PN.HOSP.TC ---
Today's Communication/Plan
-
see plan
Assessment / Plan
Assessment / Plan
84y F with PMH significant for COPD, anxiety and recent admission for pneumonia who presents to ED in respiratory distress.
Gen: NAD, Awake and alert
Eyes: EOMI, PERRLA, no scleral icterus.
Neck: supple.
CV: tachy, irreg/irreg, +S1/S2, no m/r/g.
Resp: remains with mild rales in the bases
Abd: +BS, soft, NT, ND
Skin: No rashes.
Neuro: CN 2-12 intact, non-focal.
Psych: very slightly anxious
CXR: Worsening pneumonitis and/or pulmonary edema. Cannot rule out component of underlying chronic interstitial lung disease.
Echo: Normal left ventricular size, wall thickness and systolic function. No regional
wall motion abnormalities are seen. LV ejection fraction is 70-75% by Jimenez's
method of discs.
Stage I diastolic dysfunction suggestive of abnormal relaxation.
Mild aortic stenosis. Peak/mean gradients across the aortic valve are 20/11
mmHg. Mild aortic regurgitation.
Mild tricuspid regurgitation.
No prior study available for comparison.
New Afib with RVR:
-called to bedside due to A-fib with RVR to the 200s
- Lopressor 5 mg IV given, heart rate decreased to the 140s
Acute Hypoxemic Respiratory Failure due to acute HFpEF:
-Pt with underlying chronic hypoxemic respiratory failure on 1L NC O2 at baseline
-Significant improvement in the ED with NTG, Lasix and O2 favors the former.
-was on 6L, now weaned to 1L NC O2
-cont IV Lasix
-daily wts, I/Os
-echo above
-cards following
Essential HTN (h/o) with hypotension:
-initially quite hypertensive, likely secondary to acute distress. Pt was then hypotensive following IV NTG, Lasix, etc.
-pt received Midodrine and IVF bolus, then on Levophed which has now been weaned to off
-start Eliquis 2.5mg PO BID (age/wt)
-start cardizem gtt
-discussed with cardiology
Other problems:
Recent RLL Pneumonia: cont cefdinir/azithromycin
Generalized Anxiety disorder: cont Remeron, Ativan PRN
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
4 family members updated at length at bedside, case discussed with cardiology.
DNR/heparin
Total time spent on today's encounter was 51 minutes which included time spent in counseling the patient/family regarding diagnosis and treatment plan as listed above, goals of care, and symptom management. Case was discussed with nursing staff,
specialists, and care coordinators/case management. All labs and imaging personally reviewed by me. Remainder the time spent in detailed review of previous records, lab data, imaging, and other medical provider documentation.
Anticipated Discharge: > 48 hours
Subjective/Interval History
-
Date of Service: October 28, 2024
Denies SOB.
Objective Data
-
Vital Signs:
Vital Signs
Temp Pulse Resp BP Pulse Ox
98.8 F 74 24 124/70 98
10/28/24 06:03 10/28/24 06:00 10/28/24 06:00 10/28/24 06:00 10/28/24 06:00
I&O
10/27/24 10/28/24 10/29/24
06:59 06:59 06:59
Intake Total 480 / 480
Output Total 1425 / 1425
Balance -1425 / -1425 480 / 480
[2024-10-28] MEDS: LOPRESSOR 5 MG IV (08:45)
[2024-10-28] MEDS: LASIX 20 MG IV ×2 (08:50→16:51)
[2024-10-28] MEDS: OMNICEF 300 MG PO ×2 (08:50→19:25)
[2024-10-28] MEDS: ATIVAN 0.5 MG PO ×2 (08:50→17:55)
[2024-10-28] MEDS: LYRICA 50 MG PO ×2 (08:50→19:25)
[2024-10-28] MEDS: CRESTOR 5 MG PO (08:51)
[2024-10-28] MEDS: HEPARIN SC ×2 (08:51→09:13)
--- NOTE | 2024-10-28 08:58 | W.PN.CARDCBS ---
Addendum entered and electronically signed by Rickey Yo MD 10/28/24 15:28:
I saw and examined the patient.
The Hospital Admissions Clerk's note was reviewed and I agree with the note.
Comment:
GEN: No distress, awake, Ox3
HEENT: supple, anicteric, mmm
LUNGS: scatt rhonchi
CV: Reg, S1/S2, 1/6 syst LSB, no gallop
ABD: soft, BS+, NT/ND
EXT: No edema
NEURO: Gross non-focal
SKIN: No rash
Plan:
Had an episode of new onset atrial fibrillation with rapid ventricular rates. She was placed on IV Cardizem and converted back into sinus rhythm with some hypotension.
Will add low-dose Toprol to try to maintain sinus rhythm. Blood pressure improved with midodrine.
[id number] score is 4. Will start Eliquis 2.5 mg p.o. twice daily
Continue treatments for pneumonia.
Will continue IV Lasix 20 mg IV twice daily for another 24 hours. Weight is significantly improved. Creatinine is normal.
Original Note:
Today's Communication / Plan
-
New Afib with RVR that spontaneously converted with Cardizem gtt
Hypotensive after Cardizem gtt stopped and got better with extra midodrine for a total of 7.5 mg
New to Eliquis
Diuresing
Impression / Plan
-
PCP: Dr. Tiffany Hutchinson
Card: None, but asking for Dr. Hicks as an outpatient as and son follow with Dr. Hicks
Impression:
Admitted with acute hypoxic respiratory failure, SOB and CHF 10/25/24
Recent admission for PNA 10/22/24 until 10/24/24
Acute hypoxic respiratory failure
Acute HF unknown EF
HTN emergency
Hypotension
Zoster, initial outbreak 04/2024 with ongoing rash, pain and pruritus
Newly diagnosed Afib with RVR and spontaneous conversion to SR 10/28/24
Echo 10/26/24: EF 70 to 75%, stage I diastolic dysfunction, mild peak/mean 20/11 mmHg and mild aortic regurgitation, mild TR
Plan:
-Patient with new onset Afib with RVR on 10/28/24. Patient symptomatic with weakness. Patient given Lopressor 5 mg IV by hospitalist attending and then started on Cardizem gtt. Patient spontaneously converted to SR and Cardizem gtt stopped 10/28/24.
-Outpatient dose of propranolol 80 mg daily on hold since admission. ToproL XL 12.5 mg daily started 10/28/24.
-New to Eliquis 2.5 mg BID (age 84, Cre 0.5, wt 48 kg). [id number] is 5
-Patient then progressively hypotensive despite stopping Cardizem gtt, BP 65/43. Patient given midodrine 2.5 mg PO x1 as a PRN and then ordered an additional midodrine 5 mg PO x1 by me 10/28/24. BP improved to 100/64 in the last 2 hours.
-BP has been up and down this admission. Patient was noted to be in hypertensive emergency on admission with initial BP of 205/133 and evidence of acute HF and elevated troponin. Nitro gtt started and patient later developed hypotension and briefly
required Levophed which was also stopped on 10/26/24.
-Overall weight is down at least 4 lbs with Lasix 20 mg IV BID. Patient was not taking diuretic prior to admission
-EF preserved by echo. is mild
-Acute HF may have been precipitated by HTN emergency.
-Initial troponin 0.015 and then peaked at 0.471 and now trending down. No CP. No ischemic changes on ECG. No WMA on echo. Will manage as a nonischemic myocardial injury troponin elevation.
-Patient would like her outpatient follow up to be with Dr. Hicks. Updated patient's and son for about 10 minutes on 10/28/24
HPI: Patient came to ER last evening with increased SOB and was admitted with acute HF and cardiology is now consulted. Patient was just admitted from 10/22/2024 until 10/24/2024 with CAP and symptoms including fever and productive cough. Patient was
not given a large amount of IVF's on my review of the MAR. Patient was discharged home on cefdinir and azithromycin. Patient was also discharged home on her usual regimen of oxygen 1 L at bedtime. Patient reports feeling well when she was
discharged on 10/24/2024, but then felt progressively SOB throughout the day on 10/25/2024 prompting her return to the ER. Patient was noted to be hypoxic in the ER with an initial pulse ox of 84% with 1 L and patient was initially placed on BiPAP in
the ER. Patient also noted to be markedly HTN at 205/133 and was started on NTG gtt. patient was given Lasix 40 mg IV x 1 patient then developed increasing hypotension and briefly required Levophed starting at about 4:00 this morning. No
complaints of CP. Patient has no previous cardiac testing. Her PCP is a physician that also practices holistic medicine.
Progress Note - Housemaid
Subjective
Date of Service: October 28, 2024
She feels tired and weak
Objective
Labs:
Labs
Hgb 11.7 g/dL (12.0-16.0) L 10/27/24 04:05
Hct 34.7 % (37.0-47.0) L 10/27/24 04:05
Plt Count 171 10^3/uL (130-400) 10/27/24 04:05
Sodium 139 mmol/L (135-145) 10/27/24 04:05
Potassium 3.9 mmol/L (3.5-5.1) 10/27/24 04:05
BUN 20 mg/dl (7-17) H 10/27/24 04:05
Creatinine 0.5 mg/dL (0.6-1.0) L 10/27/24 04:05
Glucose 86 mg/dl (70-99) 10/27/24 04:05
Troponins
10/25/24 10/26/24 10/26/24
18:34 00:33 05:11
Troponin I 0.015 0.471 H* D 0.304 H* D
Vital Signs and I&O:
Vital Signs
Temp Pulse Resp BP Pulse Ox
97.9 F 140 24 130/94 98
10/28/24 07:59 10/28/24 08:50 10/28/24 06:00 10/28/24 08:50 10/28/24 06:00
Vital Signs
Temp Pulse Resp BP Pulse Ox
97.9 F 140 24 130/94 98
10/28/24 07:59 10/28/24 08:50 10/28/24 06:00 10/28/24 08:50 10/28/24 06:00
Intake & Output
10/26/24 10/27/24 10/28/24 10/29/24
06:59 06:59 06:59 06:59
Intake Total 490 / 490 480 / 480
Output Total 1425 / 1425
Balance 490 / 490 -1425 / -1425 480 / 480
Physical Exam
Physical Exam
GEN: NAD. AAOx3. Soft spoken
HEENT: EOMI, left eyebrow rash c/w Zoster
LUNGS: 1 L NC. No wheeze
CV: SR on tele.
EXT: No edema B/L
NEURO: Gross non-focal
SKIN: Zoster rash above left eye.
[2024-10-28] MEDS: ELIQUIS 2.5 MG PO ×2 (09:09→19:24)
[2024-10-28] MEDS: CARDIZEM 125 IV (09:16)
--- NOTE | 2024-10-28 09:51 | PTCARENOTE ---
Assumed care of pt at walking rounds, Pt was sitting pt in chair having breakfast and then brushing teeth. Heart rate appears to be Rapid A-fib, Pt asymptomatic at 170 but felt palpitations at 200BPM. EKG completed and confirms A-fibrillation. "Juan Miguel"dru and Dr. Yo notified , EKG completed, Medications administered Cardizem gtt initiated. Pt resting quietly with and her son at bedside. Morning events reviewed with pt, and son -all verbaliz understanding of plan of care
and that the discharge is cancelled
[2024-10-28 10:44] LABS: Blood Urea Nitrogen 15 mg/dl (7-17); Calcium 9.7 mg/dl (8.4-10.2); Carbon Dioxide 31 mmol/L (22-30); Chloride 99 mmol/L (98-107); Estimated Creatinine Clearance 55 ml/min; Glucose 143 mg/dl (70-99); Potassium 3.3 mmol/L (3.5-5.1); Sodium 139 mmol/L (135-145); eGFR > 60.00
[2024-10-28] MEDS: ProAmatine 2.5 MG PO (10:46)
[2024-10-28 11:23] LABS: Hematocrit 38.6 % (37.0-47.0); Hemoglobin 13.1 g/dL (12.0-16.0); Mean Corp Hgb Conc. 33.9 g/dL (33.0-37.0); Mean Corpuscular Hgb 30.1 pg (27.0-31.0); Mean Corpuscular Volume 88.7 fL (81.0-99.0); Mean Platelet Volume 10.6 fL (7.4-10.4); Platelet Count 227 10^3/uL (130-400); Red Blood Cell Count 4.35 10^6/uL (4.20-5.40); Red Cell Dist. Width 13.7 % (11.5-14.5); White Blood Cell Count 6.4 10^3/uL (4.8-10.8)
[2024-10-28] MEDS: KCL 40 MEQ PO ×2 (12:30→16:50)
[2024-10-28] MEDS: MAGNESIUM SULFATE 50 IV (12:30)
[2024-10-28] MEDS: ProAmatine 5 MG PO (12:39)
[2024-10-28] MEDS: TOPROL XL 12.5 MG PO (14:00)
--- NOTE | 2024-10-28 15:00 | W.CHA2DS2VAS ---
[id number] Score
Score
Age in Years (65=0, 65-74=1, >/=75=2): > or = 75
Sex (Female=+1): Female
Congestive Heart Failure History (Yes=+1): Yes
Hypertension History (Yes=+1): Yes
Stroke/TIA/Thromboembolism History (Yes=+2): No
Vascular Disease History (Yes=+1): No
Diabetes Mellitus (Yes=+1): No
Score >/=2 is otherwise an anticoagulation candidate: 5
--- NOTE | 2024-10-28 15:50 | PTCARENOTE ---
Cardizem gtt initiated per protocol, pt became Hypotensive but HR remained 140-170s. Pt then converted to NSR, EKG completed to confirm NSR and pt also given PRN Midodrine 2.5mg and then an additional 5mg per Cardiology order. Toprol XL to begin
today once BP recovered and it was given at 1400. Pt had labs drawn and p.o. potassium given and IV Magnesium administered.All care reviewed with Dr. Yo and Yadira GARCIA throughout the morning events. Pt is anxious at baseline,pt denies any
chest pain throughout rapid AFib event. She has family at bedside and pt has asked them to leave at times to allow her quiet and rest periods. All care reviewed with family members and pt, they all verbalize understanding after review of medications
and lab results. [place] [facility] in NSR @68BPM. Appetite improved at lunchtime. Reenforced the importance of measuring I/O
--- NOTE | 2024-10-28 18:46 | PTCARENOTE ---
Patient eating food brought in by family members and reports her appetite has improved, pt ate a cup of soup, meatballs and small piece of lasagna.
[2024-10-28] MEDS: ZITHROMAX 500 MG PO (19:25)
--- NOTE | 2024-10-28 20:13 | PTCARENOTE ---
Assumed care for patient, received report from mireille RN. Pt is currently in NSR with HR 67 BMP. BP is soft 100/64. Pt denies any chest pain, SOB, or lightheadedness. Positive pulses, trace lower extremity edema. Educated pt on the importance of a
fluid restricted diet. Pt remains on 1L O2 SpO2 96%. Pt expresses some anxiety from the daytime due to HR which has since resolved. Pt spouse and the bedside and plans to stay. Call gonzalez is within reach.
[2024-10-28] MEDS: REMERON 15 MG PO (23:22)
[2024-10-29] VITALS (8 sets, daily range): BP systolic 90–103; BP diastolic 47–60; BMI 19.1
[2024-10-29 05:37] LABS: Hematocrit 35.8 % (37.0-47.0); Hemoglobin 11.9 g/dL (12.0-16.0); Mean Corp Hgb Conc. 33.2 g/dL (33.0-37.0); Mean Corpuscular Hgb 29.9 pg (27.0-31.0); Mean Corpuscular Volume 89.9 fL (81.0-99.0); Mean Platelet Volume 11.4 fL (7.4-10.4); Platelet Count 219 10^3/uL (130-400); Red Blood Cell Count 3.98 10^6/uL (4.20-5.40); Red Cell Dist. Width 13.7 % (11.5-14.5); White Blood Cell Count 5.9 10^3/uL (4.8-10.8)
[2024-10-29 06:03] LABS: Blood Urea Nitrogen 17 mg/dl (7-17); Calcium 9.5 mg/dl (8.4-10.2); Carbon Dioxide 34 mmol/L (22-30); Chloride 102 mmol/L (98-107); Estimated Creatinine Clearance 54 ml/min; Glucose 92 mg/dl (70-99); Potassium 4.6 mmol/L (3.5-5.1); Sodium 141 mmol/L (135-145); eGFR > 60.00
--- NOTE | 2024-10-29 08:16 | W.PN.HOSP.TC ---
Addendum entered and electronically signed by Kiel Roldan MD 10/29/24 11:21:
Total time spent on d/c = 35 min. This included today's physical exam, progress note, review of laboratory and diagnostic data, preparation of discharge documents and prescriptions, and discussions about the pt's hospital course and discharge plan
with the patient and other medical specialist involved in the patient's care.
Addendum entered and electronically signed by Kiel Roldan MD 10/29/24 11:11:
Case discussed with Dr. Yo. Pt is medically cleared for d/c. Case management aware.
Original Note:
Today's Communication/Plan
-
discharge if OK with cardiology
Assessment / Plan
Assessment / Plan
84y F with PMH significant for COPD, anxiety and recent admission for pneumonia who presents to ED in respiratory distress.
Gen: NAD, Awake and alert
Eyes: EOMI, PERRLA, no scleral icterus.
Neck: supple.
CV: RRR, +S1/S2, no m/r/g.
Resp: CTAB
Abd: +BS, soft, NT, ND
Skin: No rashes.
Neuro: CN 2-12 intact, non-focal.
Psych: normal mood and affect
CXR: Worsening pneumonitis and/or pulmonary edema. Cannot rule out component of underlying chronic interstitial lung disease.
Echo: Normal left ventricular size, wall thickness and systolic function. No regional
wall motion abnormalities are seen. LV ejection fraction is 70-75% by Jimenez's
method of discs.
Stage I diastolic dysfunction suggestive of abnormal relaxation.
Mild aortic stenosis. Peak/mean gradients across the aortic valve are 20/11
mmHg. Mild aortic regurgitation.
Mild tricuspid regurgitation.
No prior study available for comparison.
New Afib with RVR:
-called to bedside due to A-fib with RVR to the 200s 10/28/24AM
-Lopressor 5 mg IV given, heart rate decreased to the 140s
-start on Cardizem gtt
-now converted to SR, cardizem gtt off
-cont BB/Eliquis
Acute Hypoxemic Respiratory Failure due to acute HFpEF:
-Pt with underlying chronic hypoxemic respiratory failure on 1L NC O2 at baseline
-Significant improvement in the ED with NTG, Lasix and O2 favors the former.
-was on 6L, now weaned to 1L NC O2
-cont IV Lasix
-daily wts, I/Os
-echo above
-cards following
Essential HTN (h/o) with hypotension:
-initially quite hypertensive, likely secondary to acute distress. Pt was then hypotensive following IV NTG, Lasix, etc.
-pt received Midodrine and IVF bolus, then on Levophed which has now been weaned to off
-cont BB
Other problems:
Recent RLL Pneumonia: cont cefdinir/azithromycin
Generalized Anxiety disorder: cont Remeron, Ativan PRN
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
updated at bedside.
DNR/heparin
Anticipated Discharge: Today
Subjective/Interval History
-
Date of Service: October 29, 2024
No new complaints.
Objective Data
-
Labs:
Laboratory Results
10/29/24
05:10
WBC 5.9
Hgb 11.9 L
Hct 35.8 L
Plt Count 219
Sodium 141
Potassium 4.6 D
Chloride 102
Carbon Dioxide 34 H
BUN 17
Creatinine 0.5 L
Glucose 92
Calcium 9.5
Vital Signs:
Vital Signs
Temp Pulse Resp BP Pulse Ox
98.1 F 70 20 98/60 96
10/29/24 05:03 10/29/24 06:01 10/29/24 06:01 10/29/24 06:01 10/29/24 06:01
I&O
10/28/24 10/29/24 10/30/24
06:59 06:59 06:59
Intake Total 480 / 480 1340 / 1340
Output Total 1775 / 1775 / 75
Balance 480 / 480 -435 / -435 - /
[2024-10-29] MEDS: TOPROL XL 12.5 MG PO (08:23)
[2024-10-29] MEDS: OMNICEF 300 MG PO (08:24)
[2024-10-29] MEDS: ELIQUIS 2.5 MG PO (08:24)
[2024-10-29] MEDS: LYRICA 50 MG PO (08:24)
[2024-10-29] MEDS: LASIX 20 MG IV (08:24)
[2024-10-29] MEDS: CRESTOR 5 MG PO (08:24)
--- NOTE | 2024-10-29 11:22 | CM ---
Patient who resides at [facility] with recent admission to for PNA now here with Dx Acute Hypoxemic Respiratory Failure due to acute CHF. O2 1L.
Phone call to Kalpana Tayler [facility] (fax [phone]); left message notifying her that referral was updated with VN order and patient is discharged today.
Met with patient and ; both agree to d/c home today. IMM completed. Patient has [employer] P[employer]s for home O2 needs. will provide a ride home.
Plan home today with Karl[facility].
--- NOTE | 2024-10-29 12:50 | W.PN.CARDCBS ---
Today's Communication / Plan
-
Overall feels much better and back in sinus rhythm. Okay for discharge.
Continue Toprol 12.5 mg p.o. daily, Eliquis 2.5 mg p.o. twice daily.
Would discharge on Lasix 20 mg daily.
Will arrange follow-up.
Impression / Plan
-
PCP: Dr. Tiffany Hutchinson
Card: None, but asking for Dr. Hicks as an outpatient as and son follow with Dr. Hicks
Impression:
Admitted with acute hypoxic respiratory failure, SOB and CHF 10/25/24
Recent admission for PNA 10/22/24 until 10/24/24
Acute hypoxic respiratory failure
Acute HF unknown EF
HTN emergency
Hypotension
Zoster, initial outbreak 04/2024 with ongoing rash, pain and pruritus
Newly diagnosed Afib with RVR and spontaneous conversion to SR 10/28/24
Echo 10/26/24: EF 70 to 75%, stage I diastolic dysfunction, mild peak/mean 20/11 mmHg and mild aortic regurgitation, mild TR
Plan:
-Back in sinus rhythm. Blood pressure stable. Continue Toprol 12.5 mg daily.
-Continue Eliquis 2.5 mg p.o. twice daily. Volume status is improved. Would discharge on Lasix 20 mg daily. Creatinine normal.
-EF preserved by echo. is mild
-Acute HF may have been precipitated by HTN emergency.
-Initial troponin 0.015 and then peaked at 0.471 and now trending down. No CP. No ischemic changes on ECG. No WMA on echo. Will manage as a nonischemic myocardial injury troponin elevation.
-Patient would like her outpatient follow up to be with Dr. Hicks. Will arrange follow-up.
HPI: Patient came to ER last evening with increased SOB and was admitted with acute HF and cardiology is now consulted. Patient was just admitted from 10/22/2024 until 10/24/2024 with CAP and symptoms including fever and productive cough. Patient was
not given a large amount of IVF's on my review of the SEP. Patient was discharged home on cefdinir and azithromycin. Patient was also discharged home on her usual regimen of oxygen 1 L at bedtime. Patient reports feeling well when she was
discharged on 10/24/2024, but then felt progressively SOB throughout the day on 10/25/2024 prompting her return to the ER. Patient was noted to be hypoxic in the ER with an initial pulse ox of 84% with 1 L and patient was initially placed on BiPAP in
the ER. Patient also noted to be markedly HTN at 205/133 and was started on NTG gtt. patient was given Lasix 40 mg IV x 1 patient then developed increasing hypotension and briefly required Levophed starting at about 4:00 this morning. No
complaints of CP. Patient has no previous cardiac testing. Her PCP is a physician that also practices holistic medicine.
Progress Note - Sales Order Clerk
Subjective
Date of Service: October 29, 2024
Feels better and remains in sinus rhythm.
Objective
Labs:
10/29/24 05:10
10/29/24 05:10
Labs
Hgb 11.9 g/dL (12.0-16.0) L 10/29/24 05:10
Hct 35.8 % (37.0-47.0) L 10/29/24 05:10
Plt Count 219 10^3/uL (130-400) 10/29/24 05:10
Sodium 141 mmol/L (135-145) 10/29/24 05:10
Potassium 4.6 mmol/L (3.5-5.1) D 10/29/24 05:10
BUN 17 mg/dl (7-17) 10/29/24 05:10
Creatinine 0.5 mg/dL (0.6-1.0) L 10/29/24 05:10
Glucose 92 mg/dl (70-99) 10/29/24 05:10
Vital Signs and I&O:
Vital Signs
Temp Pulse Resp BP Pulse Ox
97.5 F 86 20 103/73 94
10/29/24 07:53 10/29/24 08:24 10/29/24 06:01 10/29/24 08:24 10/29/24 08:41
Vital Signs
Temp Pulse Resp BP Pulse Ox
97.5 F 86 20 103/73 94
10/29/24 07:53 10/29/24 08:24 10/29/24 06:01 10/29/24 08:24 10/29/24 08:41
Intake & Output
10/27/24 10/28/24 10/29/24 10/30/24
06:59 06:59 06:59 06:59
Intake Total 480 / 480 1340 / 1340
Output Total 1425 / 1425 1775 / 1775 75 / 75
Balance -1425 / -1425 480 / 480 -435 / -435 -75 / -75
Physical Exam
Physical Exam
GEN: No distress, awake, Ox3
HEENT: supple, anicteric, mmm
LUNGS: CTA, no wheezes/rales
CV: Reg, S1/S2, 1/6 syst LSB, no gallop
ABD: soft, BS+, NT/ND
EXT: No edema
NEURO: Gross non-focal
SKIN: No rash
--- NOTE | 2024-10-29 13:12 | PTCARENOTE ---
Assume care of pt this am, NSR in 70 range, Sitting up in chair for breakfast with at bedside, Oxygen at 1L which is her baseline use at home. Antibiotic treatment plan confirmed with Dr. Roldan and discharge instructions updated. Pt and
family members verbalize understanding and follow up care. Discharged to home with HF packet and instructions
--- NOTE | 2024-11-01 11:48 | W.HF.CON ---
Heart Failure
- LV Function
Left ventricular function study result: LV Ejection fraction >/= 50%
Ejection Fraction Percentage: 70-75
- ARNI
Patient already on ARNI: No
Heart Failure ARNI Not Indicated: LV Ejection Fraction >/= 40%
- ACEI/ARB
Patient already on ACEI/ARB: No
Heart Failure ACEI/ARB Not Indicated: LV Ejection Fraction > 40%
- Beta Kaleb
Patient already on Evidence Based Beta Kaleb: Yes
- Mineralocorticord Receptor Antagonist
Patient already on MRA: No
Heart Failure MRA Not Indicated: LV Ejection Fraction > 40%
- SGLT-2 Inhibitor
Patient already on SGLT-2 Inhibitor: No
Heart Failure SGLT-2 Inhibitor Not Indicated: LV Ejection Fraction >40%
- Afib Anticoagulation
Patient already on Anticoagulation for Afib: Yes
- NYHA CHF Classification
NYHA CHF Classification Level: Class III - Symptoms w/ min exertion, interferes w/ nml daily activity
- ACC/AHA Stage
ACC/AHA Stage: Stage C: Symptomatic Heart Failure
== END 2024-10-29 13:29 | disposition home health service (06) | DRG 291 ==
LOC: IMU 22:41
PROVIDERS: Nurse Practitioner Family; Physician Assistant; ADMITTING PHYSICIAN Hospitalist; ATTENDING PHYSICIAN Internal Medicine; CONSULT PHYSICIAN Internal Medicine Cardiovascular Disease; EMERGENCY PHYSICIAN Student in an Organized Health Care Education/Training Program; FAMILY PHYSICIAN Internal Medicine
DX: I11.0 Hypertensive heart disease with heart failure (principal); I50.31 Acute diastolic (congestive) heart failure; J18.9 Pneumonia, unspecified organism; J96.01 Acute respiratory failure with hypoxia; I16.1 Hypertensive emergency; J44.0 Chronic obstructive pulmonary disease with (acute) lower respiratory infection; T88.6XXA Anaphylactic reaction due to adverse effect of correct drug or medicament properly administered, initial encounter; Z66 Do not resuscitate; T50.1X5A Adverse effect of loop [high-ceiling] diuretics, initial encounter; I5A Non-ischemic myocardial injury (non-traumatic); B02.9 Zoster without complications; E78.5 Hyperlipidemia, unspecified; F41.1 Generalized anxiety disorder; I25.10 Atherosclerotic heart disease of native coronary artery without angina pectoris; I48.91 Unspecified atrial fibrillation; Z87.891 Personal history of nicotine dependence; Z87.01 Personal history of pneumonia (recurrent); Z79.899 Other long term (current) drug therapy
CPT/HCPCS: 71045; 80048; 80053; 82805; 83735; 83880; 84443; 84484; 85025; 85027; 87070; 93005; 93306; 94640; 94660; 96374; 96375; 97163; 97167; 97530; 99291